=== PATIENT | male | born 1945 | race Caucasian/White ===

== ENCOUNTER → 2016-04-21 | Outpatient (CLI) | payer OTHER, MEDICARE ==
[~2016-04-21] MED LIST: IOPAMIDOL (ISOVUE-300) 100 ML BTL IV ONE
[2016-04-21 12:14] LABS: CREATININE 0.8 mg/dL (0.7-1.3); GLOMERULAR FILTRATION RATE > 60
--- NOTE | 2016-04-21 14:31 | CT ---
CT Abdomen and Pelvis (Without and With Contrast) CT Urogram 1241 hours History: Hematuria (R 31.9). Technique: Spiral images were obtained through the abdomen and pelvis without contrast for renal ston e evaluation. 99 mL of Isovue-300 IV contrast were administered and spiral images were obtained throu gh the abdomen. After a 12-minute delay, spiral imaging was obtained through the abdomen and pelvis. Images were reconstructed in multiple planes for CT urogram imaging. An AP scanogram mattress filling machine tender image was also obtained over the abdomen and pelvis after axial imaging was acquired. Dose reduction techniques were utilized. Findings: On the noncontrast images, there is no evidence of calculus projected over the kidneys or a long the expected path of the ureters. No bladder calculus is seen, as well. With IV contrast administration, there is good uptake and excretion of contrast by the kidneys. No fi lling defects are seen within the collecting system on either side with normal contour to the renal c ollecting structures, as well as the ureters. There is a 15 mm complex cyst lower pole left kidney. Along the left superior margin of the bladder there is focal thickening of the bladder wall. This thuan ears to be associated with a soft tissue band that extends to the sigmoid colon. There is a gas bubbl e just superficial to this thickening as well on the delayed images suspicious for fistula with the a djacent sigmoid colon to the wall of the bladder. There is no gas in the bladder lumen. A fistula thr ough the bladder wall is felt to be unlikely. The remaining bladder wall is normal in appearance. Lung bases: There are a few fibrotic bands in each lung base. Liver: Normal. Spleen: Normal. Gallbladder and Bile Ducts: Normal. Pancreas: Normal. Adrenals: Normal. Abdominal Aorta: No aneurysm. Pelvic structures: There are no pelvic masses or lymphadenopathy. Bladder: Normal . Appendix: Normal. Bowel Loops: There is incidental lipoma of the gastric antrum that measures 4.5 x 3.5 x 3.5 cm. Nume bradley diverticula are seen of the sigmoid colon without active diverticulitis.. No bowel obstruction, ascites, or significant retroperitoneal lymphadenopathy. Skeletal system: Vertebral body heights are well-maintained. There are no significant lytic or scler otic osseous lesions. Impression: 1. Focal thickening and possible inflammation of the left superior bladder wall with associated fistu la that appears to extend from the sigmoid colon to the bladder wall in this location. This could be related to previously treated diverticulitis with persistent fistula. On delayed imaging there is a g as bubble adjacent to the bladder wall thickening. A bladder wall mass cannot be completely excluded. Consider correlation with cystoscopy. 2. Incidental complex cyst lower pole left kidney. 3. Incidental lipoma gastric antrum.
== END ==
LOC: FIMAGING 11:20
PROVIDERS: ATTEND Internal Medicine
DX: K63.2 Fistula of intestine (principal); N28.1 Cyst of kidney, acquired; D17.79 Benign lipomatous neoplasm of other sites
CPT/HCPCS: 74178; Q9967

== ENCOUNTER → 2016-05-15 | Outpatient (CLI) | payer OTHER, MEDICARE | LOC: FIMAGING 12:37 | PROVIDERS: ATTEND Physician Assistant Medical | DX: N28.1 Cyst of kidney, acquired (principal); R31.0 Gross hematuria ==

== ENCOUNTER → 2017-01-23 | Outpatient (CLI) | payer OTHER, MEDICARE | LOC: BHLMT 08:30 | PROVIDERS: ATTEND Internal Medicine Interventional Cardiology | DX: I25.10 Atherosclerotic heart disease of native coronary artery without angina pectoris (principal); R06.02 Shortness of breath | CPT/HCPCS: 93306-PO ==

== ENCOUNTER → 2017-01-23 | Outpatient (CLI) | payer OTHER, MEDICARE | LOC: BHFA 09:00 | PROVIDERS: ATTEND Internal Medicine Cardiovascular Disease | DX: I25.10 Atherosclerotic heart disease of native coronary artery without angina pectoris (principal); R06.02 Shortness of breath; I10 Essential (primary) hypertension; I72.9 Aneurysm of unspecified site | CPT/HCPCS: 78452; 93017; A9500 ==

== ENCOUNTER 2017-05-23 08:42 | Inpatient (IN) | payer OTHER, MEDICARE ==
[2017-05-23] MEDS ORDERED: DIAZEPAM 5 MG TAB PO ONE (08:46)
[2017-05-23] MEDS ORDERED: NS 1,000 ML IV ONE (08:46)
[2017-05-23] MEDS ORDERED: ASPIRIN EC 325 MG TAB PO ONE (08:46)
[2017-05-23] MEDS ORDERED: FAMOTIDINE 20 MG TAB PO ONE (08:46)
[2017-05-23] MEDS ORDERED: diphenhydrAMINE 25 MG CAP PO ONE (08:46)
--- NOTE | 2017-05-23 09:21 | CPEKG ---
Heart Rate: 57 RR Interval: 1053 P-R Interval: 208 QRSD Interval: 102 QT Interval: 440 QTC Interval: 429 P [place]: -69 QRS [place]: 25 T Wave [place]: 31 EKG Severity - OTHERWISE NORMAL ECG - EKG Impression: SINUS OR ECTOPIC ATRIAL RHYTHM Electronically Signed By: Mahin Jaimes 23-May-2017 12:16:29
[2017-05-23 09:23] LABS: PLATELET COUNT 186 10^3/uL (150-400)
[2017-05-23 09:33] LABS: INR 1.08 (0.83-1.16); PROTIME(PATIENT) 14.2 SEC (12.0-15.0)
--- NOTE | 2017-05-23 10:35 | PDPROPOC ---
Sedation Plan of Care Sedation Plan of Care: vital signs stable, mental status noted, patient educated of risks, benefits, alternatives, patient can tolerate sedation ASA Classification: ASA 1 Planned drugs: fentanyl, midazolam Mallampati Score: Class 1 Mallampati Reference Image: Patient passed 3-3-2 rule?: Yes
--- NOTE | 2017-05-23 10:37 | PDGENHP ---
History & Physical Chief Complaint: BROOKS. History of Present Illness: Brooks, known CAD with abnormal MPI indicating a large area of ischemia involving the RCA territory. Pertinent Past, Social, Family History: See prior H and P Relevant Physical Exam: Alert/ Oriented. RRR, no MGR. Lungs clear Cardiorespiratory Assessment: Stable for cardiac catheterization.
[2017-05-23] MEDS ORDERED: LIDOCAINE 1% 300 MG/30 ML SDV ONE (11:09)
[2017-05-23] MEDS ORDERED: MIDAZOLAM 2 MG/2 ML VIAL ONE ×2 (11:09→12:21)
[2017-05-23] MEDS ORDERED: fentaNYL 100 MCG/2 ML INJ ONE (11:09)
[2017-05-23] MEDS ORDERED: IOPAMIDOL (ISOVUE-370) 150 ML BTL IV ONE (11:10)
[2017-05-23] MEDS ORDERED: HEPARIN 10,000 UNIT/10 ML MDV (1,000 UNIT/ML) ONE (11:20)
[2017-05-23] MEDS ORDERED: VERAPAMIL 5 MG/2 ML VIAL ONE (11:20)
--- NOTE | 2017-05-23 12:19 | PDDXCAT ---
Diagnostic Cath Note - . Date: 05/23/17 Computer Systems Integrator: Nadira Indication: Class I/II angina, intolerance to med therapy or failure to respond High-risk criteria on non-invasive testing: stress-induced large perfusion defect (particularly if anterior) - Procedure Access: right wrist Procedure: left heart catheterization, coronary angiography, left ventriculogram - Materials Left Heart Cath size: 5F Left Heart Cath materials: JL3.5, JR4.0, pigtail Right Heart Cath size: 5F - Findings-Left Heart Catheterization LM: Large caliber vessel. Bifurcates in the left anterior descending and circumflex distributions. No significant disease. LAD: Large caliber, transapical vessel. Gives rise to a single principal diagonal branch. Luminal irregularities with no obstructive lesions. LCX: Large caliber vessel. There are 2 obtuse marginal branches identified that originates very proximally in the vessel. There is a small posterolateral branch. There are luminal irregularities with no obstructive lesions. RCA: Large caliber vessel. Dominant. The PDA and a posterolateral branch are identified. There is a high-grade (80%) lesion in the mid vessel immediately distal to an RV branch. EDP: 21 mmHg. LVEF: 45%. Wall motion: Anterolateral hypokinesis. Complications: None. Estimated blood loss: <50ml Closure method: TR Band Assessment: 1. High-grade single-vessel disease as described above with an 80% lesion in the midportion of the right coronary artery. 2. Symptoms of dyspnea on exertion likely representing an anginal equivalent. These are refractory to medical therapy. 3. Intermediate risk nuclear stress test with a large area of inferior reversible ischemia. Plan: The patient will be referred to Dr. Ramsey Mcmahon for percutaneous intervention of the right coronary artery. Intervention: There is a separately dictated report.
[2017-05-23] MEDS ORDERED: CLOPIDOGREL BISULFATE 75 MG TAB ONE (12:30)
[2017-05-23] MEDS ORDERED: TEMAZEPAM 15 MG CAP PO PRN (12:48)
[2017-05-23] MEDS ORDERED: CLOPIDOGREL BISULFATE 75 MG TAB PO ONE (12:48)
[2017-05-23] MEDS ORDERED: OXYCODONE/APAP 5/325 TAB PO PRN (12:48)
[2017-05-23] MEDS ORDERED: HYDROCODONE/APAP 5/325 TAB PO PRN (12:48)
[2017-05-23] MEDS ORDERED: ATROPINE SULFATE 1 MG/10 ML SYR IVP PRN (12:48)
[2017-05-23] MEDS ORDERED: LORazepam 2 MG/ML INJ IVP PRN (12:48)
[2017-05-23] MEDS ORDERED: ONDANSETRON 4 MG/2 ML VIAL IVP PRN (12:48)
[2017-05-23] MEDS ORDERED: NITROGLYCERIN 0.4 MG BTL SL PRN (12:48)
[2017-05-23] MEDS ORDERED: FLUTICASONE/SALMETER 250/50MCG DISKUS IH PRN (12:54)
[2017-05-23] MEDS ORDERED: traMADol 50 MG TAB PO PRN (12:54)
[2017-05-23] MEDS ORDERED: NS 1,000 ML IV SCH (13:00)
--- NOTE | 2017-05-23 13:04 | PDDXCAT ---
Diagnostic Cath Note - . Date: 05/23/17 Biomedical Equipment Tech: Lisandro Indication: other (Dyspnea on exertion, Intermediate risk nuclear stress test with large area perfusion deficit) - Procedure Access: right wrist - Materials Left Heart Cath size: 5F Complications: NONE. Estimated blood loss: <50ml Assessment: Dr. Waddell performed the diagnosic portion of the test. I was asked to see the patient for intraoperative consultation for PTCA and stent placement. Please see Dr. Waddell's dictation in a separate note. Plan: Dual antiplatelet therapy with Aspirin 325mg for the first month followed by Aspirin 81mg along with Plavix 75mg daily should be continued for at least 1 year following drug eluting stent implantation. No elective surgery for the first 3 months. Decisions to stop dual antiplatelet therapy before 1 year should involve our office at [facility], . Intervention: The patient has single vessel disease. There is an 80% lesion in the mid portion of the right coronary artery. A 5 Cam[place]onian JR4 Launcher was used for guide catheter support. A 0.014 Intuition wire was advanced across the lesion in the right coronary artery under direct fluoroscopic and angiographic guidance. The lesion was primarily was primarily ballooned with a 3.0/15 Emerge balloon. The lesion was then stented with a [employer] Synergy 4.0 x 24mm Drug Eluting stent was placed in the lesion mid RCA. There was TERESA III flow present pre and post stent placement. The post stent residual obstruction was 0%.
--- NOTE | 2017-05-23 13:05 | CPEKG ---
Heart Rate: 59 RR Interval: 1017 P-R Interval: 224 QRSD Interval: 106 QT Interval: 456 QTC Interval: 452 P [place]: -13 QRS [place]: 16 T Wave [place]: 21 EKG Severity - ABNORMAL ECG - EKG Impression: SINUS RHYTHM EKG Impression: FIRST DEGREE AV BLOCK EKG Impression: LOW VOLTAGE IN FRONTAL LEADS Electronically Signed By: Mahin Rowland 23-May-2017 16:00:46
[2017-05-24 04:16] LABS: PLATELET COUNT 183 10^3/uL (150-400)
[2017-05-24] MEDS ORDERED: LEVOTHYROXINE 150 MCG TAB PO SCH (06:00)
[2017-05-24] MEDS ORDERED: LEVOTHYROXINE 200 MCG TAB PO SCH (06:00)
[2017-05-24] MEDS ORDERED: amLODIPine BESYLATE 5 MG TAB PO SCH (09:00)
[2017-05-24] MEDS ORDERED: ASPIRIN EC 325 MG TAB PO SCH (09:00)
[2017-05-24] MEDS ORDERED: METOPROLOL SUCCINATE XR 25 MG TAB PO SCH (09:00)
[2017-05-24] MEDS ORDERED: CHOLECALCIFEROL VIT D3 1,000 UNITS TAB PO SCH (09:00)
[2017-05-24] MEDS ORDERED: ALLOPURINOL 300 MG TAB PO SCH (09:00)
[2017-05-24] MEDS ORDERED: CLOPIDOGREL BISULFATE 75 MG TAB PO SCH (09:00)
[2017-05-24] MEDS ORDERED: ATORVASTATIN CALCIUM 40 MG TAB PO SCH (09:00)
--- NOTE | 2017-05-24 09:01 | CPEKG ---
Heart Rate: 70 RR Interval: 857 P-R Interval: 196 QRSD Interval: 106 QT Interval: 376 QTC Interval: 406 P [place]: -68 QRS [place]: 25 T Wave [place]: 59 EKG Severity - OTHERWISE NORMAL ECG - EKG Impression: SINUS OR ECTOPIC ATRIAL RHYTHM EKG Impression: LOW VOLTAGE IN FRONTAL LEADS Electronically Signed By: Mahin Rowland 24-May-2017 11:04:46
[2017-05-24 12:29] VITALS: BP 138/80; PULSE 77; RESP 17; TEMP 98.2; O2SAT 94
--- NOTE | 2017-05-24 13:41 | PDMN ---
Medical Necessity Medical necessity: Pt meets IP criteria per MD; est los >2 mn for eval/tx of dyspnea on exertion & CAD w/abnormal MPI indicating large area of ischemia & 80 % lesion of right coronary artery requiring PCI & monitoring; hx aneurysm, htn, pneumonia' per H&P & order 05/23/17
--- NOTE | 2017-05-25 20:59 | GDS ---
[f rep st] DISCHARGE SUMMARY ADMIT DIAGNOSES: 1. Abnormal nuclear stress test. 2. Planned cardiac angiogram with possible percutaneous coronary intervention. DISCHARGE DIAGNOSES: 1. Status post right coronary artery, percutaneous coronary intervention with placement of drug-elut ing stent. 2. Coronary artery disease. COURSE OF HOSPITALIZATION: This gentleman is a known patient of Dr. Jose Waddell. He had complaints of anginal symptoms, and was further evaluated with Nuclear treadmill stress test, which was abnorma l, showing a large area of inferior reversible ischemia. It was recommended that he proceed [facility] to further evaluate his cardiac status. He was taken to the cardiac company laborer by Dr. Amy Waddell on 05/23/2017, where he did find a high-grade 80% lesion in the mid vessel immediately di stal to an RV branch of the RCA. His left ventricle ejection fraction was 45%. Wall motion showed a nterior lateral hypokinesis. Dr. Waddell then referred him to Dr. Ramsey Mcmahon for percutaneous interv ention of the right coronary artery. Dr. Mcmahon intervened during the procedure, and was able to suc cessfully place a drug-eluting stent to the 80% lesion of the right coronary artery. He was then felipe en to PCU for overnight observation, where he has done well. He has no chest pain, shortness of dioni th on the morning of discharge. He has been up ambulating, and has no complaints. ALLERGIES: Sulfamethoxazole and trimethoprim. DISCHARGE MEDICATIONS: He will resume vitamin B complex daily, multivitamin daily, vitamin D3 1,000 units daily, fish oil 1,000 mg daily, Ultram 50 mg every 6 hours as needed, metoprolol extended relea se 25 mg daily, Synthroid 200 mcg daily, Proventil 1-2 puffs inhaled daily as needed, Norvasc 5 mg da leon, Synthroid 150 mcg daily, Lipitor 40 mg 80 mg daily, aspirin 325 mg daily, allopurinol 300 mg roz ly, Advair 1 puff inhaled twice daily as needed, meloxicam 15 mg at bedtime daily, Plavix 75 mg daily . PHYSICAL EXAMINATION: VITAL SIGNS: On day of discharge, blood pressure 138/80, heart rate 77 and re gular, oxygen saturation 94%, temperature 36.8 Celsius. EKG showed normal sinus rhythm with a rate o f 77. HEART: Rate regular. No murmurs, rubs, gallops. LUNGS: Sounds are clear to auscultation. No wheezes, rales, or rhonchi. EXTREMITIES: Peripheral pulses are 2+ bilaterally. Right wrist cath insertion site shows no ecchymosis. Ulnar and radial pulses are 2+. Good capillary refill of raffaele rs. DISCHARGE PLAN: He will be discharged home today. He was given wrist precautions verbally and with instruction sheet. These were reviewed with him. The procedure and placement of stent were reviewed with him, and all questions were answered. He does have more questions for Dr. Waddell when he sees h im in followup. Follow up with Dr. Waddell in 1 week. Appointment has been made. At this time, he currently is stable for discharge. /[id number]/MODL
== END 2017-05-24 12:00 | disposition home or self-care (01) | DRG 247 ==
LOC: FCATH 08:42 → F2W 12:18 → OBSVTOIN 12:50 → F2W 14:03
PROVIDERS: ADMIT Internal Medicine Cardiovascular Disease; ATTEND Internal Medicine Cardiovascular Disease
PROC: 027034Z Dilation of Coronary Artery, One Artery with Drug-eluting Intraluminal Device, Percutaneous Approach (ICD-10-PCS; principal; 2017-05-23)
PROC: B2111ZZ Fluoroscopy of Multiple Coronary Arteries using Low Osmolar Contrast (ICD-10-PCS; 2017-05-23)
PROC: B2151ZZ Fluoroscopy of Left Heart using Low Osmolar Contrast (ICD-10-PCS; 2017-05-23)
PROC: 4A023N7 Measurement of Cardiac Sampling and Pressure, Left Heart, Percutaneous Approach (ICD-10-PCS; 2017-05-23)
DX: I25.10 Atherosclerotic heart disease of native coronary artery without angina pectoris (principal); I10 Essential (primary) hypertension
CPT/HCPCS: C1725; C1769; C1874; C1887; C9600; J1644; J2250; J3010; Q9967

== ENCOUNTER → 2017-07-05 | Outpatient (CLI) | payer OTHER, MEDICARE | LOC: BHFA 08:00 | PROVIDERS: ATTEND Internal Medicine Cardiovascular Disease | DX: J45.909 Unspecified asthma, uncomplicated (principal); R06.09 Other forms of dyspnea ==

== ENCOUNTER 2018-04-02 10:36 | Inpatient (IN) | payer OTHER, MEDICARE ==
--- NOTE | 2018-04-02 11:00 | EDPHY ---
HPI/HX/ROS/PE/MDM Narrative: CHIEF COMPLAINT: Possible GI bleed HISTORY OF PRESENT ILLNESS: The patient is an anticoagulated (Plavix and Aspirin) 72 y/o male with a history of cardiac stents arriving to the emergency department for a possible GI bleed. Starting yesterday he began to feel dizzy and lightheaded. When he went to the bathroom he noticed that he had black tarry stool. His symptoms continued today and he had a syncopal episode. After the syncopal episode he did hit his head. As his symptoms did not improve he saw his physician, Dr. Lal, who advised that the patient present to the emergency department. The patient does take Meloxicam for arthritis. He denies a history of gastric ulcers or prior GI bleeds. His last colonoscopy was 2 years ago and there were not significant findings. No fever, chills, chest pain, shortness of breath, palpitations, vomiting, diarrhea, urinary complaints, headache. This patient is a poor historian. REVIEW OF SYSTEMS: Aside from elements discussed in the HPI, a comprehensive 10-point review of systems was reviewed and is negative. PAST MEDICAL HISTORY: Cardiac stents (on Plavix), hypertension, gout, thyroid cancer, left knee and hip replacement SOCIAL HISTORY: at bedside, lives in [place], retired VITAL SIGNS: Reviewed by me 115/77, 81 GENERAL: Well-developed, well-nourished, alert, elderly patient. HEENT: Abrasions on bilateral frontal forehead. Eyes: No icterus, no injection. Mouth: moist mucous membranes. No erythema or lesions. Neck: supple with no adenopathy. LUNGS: Clear to auscultation bilaterally, no wheezes, rhonchi or rales. CARDIAC: Irregular tachycardia, no rubs, murmurs or gallops. ABDOMEN: Soft, nontender, nondistended, bowel sounds normal. RECTAL: Melena present. BACK: No CVA tenderness. EXTREMITIES: No trauma. No edema. Range of motion is normal throughout. NEURO: Alert and oriented, grossly nonfocal. SKIN: Warm and dry, no rash. PSYCHIATRIC: Normal mentation, no agitation. Portions of this note were transcribed by a medical program specialist. I personally performed a history, physical exam, medical decision making, and confirmed accuracy of information the transcribed note. ED Course: The patient is an anticoagulated (Plavix and Aspirin) 72 y/o male with a history of cardiac stents arriving to the emergency department for a possible GI bleed. The patient began to feel dizzy, have syncopal episodes, and have black tarry stools yesterday. Today he was advised to present to the emergency department by Dr. Lal. On my physical exam the patient has melena present. He also has an abrasion on his bilateral frontal forehead after having a syncopal episode and hitting his head today. Labs and EKG ordered; 40mg IV Protonix and 1L IV NS administered. I discussed the plan for admission, which the patient and his are comfortable with. 1054: 12-LEAD EKG: Please see the full report in [employer] [facility]. My interpretation: Atrial fibrillation with a rate of 101. Upon repeat examination the patient is no longer in atrial fibrillation. 1130: Patient's POC troponin is negative. H and H 01/15. 1135: I consulted with the hospitalist service, Dr. Waters accepts admission of this patient. Discussed with GI also and they will follow in the hospital. 1150: I spoke with the radiologist who reports that the patient's head CT has no acute findings. Remained hemodynamically stable; admitted to hospital. MDM: Diff dx considered included but not limited to lower gi bleeding, upper gi bleeding, peptic ulcer disease, acute anemia, hemorrhagic shock, intracranial hemorrhage, complications of anti-coagulant use. - Data Points Imaging Results: Imaging Impressions Head CT 04/02/18 11:17 Impression: 1. Negative. No acute fracture or evidence of acute intracranial injury. 2. White matter disease and right parietal encephalomalacia are unchanged since 2 months prior. Findings discussed with Emergency Department physician, Dr. Angela Hdz on April 02, 2018 at 1150 hours. Imaging: Discussed imaging studies w/ candy catcher Radiologist, I viewed and interpreted images myself Laboratory Results: Laboratory Results 04/02/18 10:56 04/02/18 10:56 04/02/18 04/02/18 04/02/18 11:03 11:03 10:56 WBC RBC Hgb POC Hgb 10.2 gm/dL L gm/dL (13.7-17.5) Hct POC Hct 30 % L % (40-51) MCV MCH MCHC RDW Plt Count MPV Neut % (Auto) Lymph % (Auto) [place] % (Auto) Eos % (Auto) Baso % (Auto) Nucleat RBC Rel Count Absolute Neuts (auto) Absolute Lymphs (auto) Absolute Monos (auto) Absolute Eos (auto) Absolute Basos (auto) Absolute Nucleated RBC Immature Gran % Immature Gran # PT INR POC Sodium 142 mEq/L mEq/L (135-145) Sodium POC Potassium 3.7 mEq/L mEq/L (3.3-5.0) Potassium POC Chloride 105 mEq/L mEq/L (97-110) Chloride Carbon Dioxide Anion Gap POC BUN 71 mg/dL H mg/dL (7-23) BUN Creatinine POC Creatinine 1.0 mg/dL mg/dL (0.7-1.3) Estimated GFR Glucose POC Glucose 90 mg/dL mg/dL (70-100) Calcium Total Bilirubin Conjugated Bilirubin Unconjugated Bilirubin AST ALT Alkaline Phosphatase POC Troponin I 0.00 ng/mL ng/mL (0.00-0.08) Troponin I Total Protein Albumin Lipase Stool Occult Bld Scrn Patient ABO/Rh O POSITIVE Antibody Screen NEGATIVE 04/02/18 04/02/18 04/02/18 10:56 10:56 10:56 WBC RBC Hgb POC Hgb Hct POC Hct MCV MCH MCHC RDW Plt Count MPV Neut % (Auto) Lymph % (Auto) [place] % (Auto) Eos % (Auto) Baso % (Auto) Nucleat RBC Rel Count Absolute Neuts (auto) Absolute Lymphs (auto) Absolute Monos (auto) Absolute Eos (auto) Absolute Basos (auto) Absolute Nucleated RBC Immature Gran % Immature Gran # PT 16.1 SEC H SEC (12.0-15.0) INR 1.27 H (0.83-1.16) POC Sodium Sodium 139 mEq/L mEq/L (135-145) POC Potassium Potassium 4.0 mEq/L mEq/L (3.5-5.2) POC Chloride Chloride 109 mEq/L mEq/L (97-110) Carbon Dioxide 23 mEq/l mEq/l (22-31) Anion Gap 7 mEq/L mEq/L (6-14) POC BUN BUN 75 mg/dL H mg/dL (7-23) Creatinine 0.9 mg/dL mg/dL (0.7-1.3) POC Creatinine Estimated GFR > 60 Glucose 88 mg/dL mg/dL (70-100) POC Glucose Calcium 8.9 mg/dL mg/dL (8.5-10.4) Total Bilirubin 0.8 mg/dL mg/dL (0.1-1.4) Conjugated Bilirubin 0.5 mg/dL mg/dL (0.0-0.5) Unconjugated Bilirubin 0.3 mg/dL mg/dL (0.0-1.1) AST 24 IU/L IU/L (17-59) ALT 26 IU/L IU/L (21-72) Alkaline Phosphatase 54 IU/L IU/L (38-126) POC Troponin I Troponin I < 0.012 ng/mL ng/mL (0.000-0.034) Total Protein 5.6 g/dL L g/dL (6.3-8.2) Albumin 3.2 g/dL L g/dL (3.5-5.0) Lipase 148 IU/L IU/L (23-300) Stool Occult Bld Scrn POSITIVE H (NEGATIVE) Patient ABO/Rh Antibody Screen 04/02/18 10:56 WBC 13.03 10^3/uL H 10^3/uL (3.80-9.50) RBC 3.02 10^6/uL L 10^6/uL (4.40-6.38) Hgb 10.4 g/dL L g/dL (13.7-17.5) POC Hgb Hct 30.2 % L % (40.0-51.0) POC Hct MCV 100.0 fL H fL (81.5-99.8) MCH 34.4 pg H pg (27.9-34.1) MCHC 34.4 g/dL g/dL (32.4-36.7) RDW 13.3 % % (11.5-15.2) Plt Count 206 10^3/uL 10^3/uL (150-400) MPV 12.2 fL H fL (8.7-11.7) Neut % (Auto) 86.8 % H % (39.3-74.2) Lymph % (Auto) 6.5 % L % (15.0-45.0) [place] % (Auto) 6.1 % % (4.5-13.0) Eos % (Auto) 0.0 % L % (0.6-7.6) Baso % (Auto) 0.2 % L % (0.3-1.7) Nucleat RBC Rel Count 0.0 % % (0.0-0.2) Absolute Neuts (auto) 11.31 10^3/uL H 10^3/uL (1.70-6.50) Absolute Lymphs (auto) 0.85 10^3/uL L 10^3/uL (1.00-3.00) Absolute Monos (auto) 0.80 10^3/uL 10^3/uL (0.30-0.80) Absolute Eos (auto) 0.00 10^3/uL L 10^3/uL (0.03-0.40) Absolute Basos (auto) 0.02 10^3/uL 10^3/uL (0.02-0.10) Absolute Nucleated RBC 0.00 10^3/uL 10^3/uL (0-0.01) Immature Gran % 0.4 % % (0.0-1.1) Immature Gran # 0.05 10^3/uL 10^3/uL (0.00-0.10) PT INR POC Sodium Sodium POC Potassium Potassium POC Chloride Chloride Carbon Dioxide Anion Gap POC BUN BUN Creatinine POC Creatinine Estimated GFR Glucose POC Glucose Calcium Total Bilirubin Conjugated Bilirubin Unconjugated Bilirubin AST ALT Alkaline Phosphatase POC Troponin I Troponin I Total Protein Albumin Lipase Stool Occult Bld Scrn Patient ABO/Rh Antibody Screen Medications Given: Discontinued Medications Sodium Chloride (Ns) 1,000 mls @ 0 mls/hr IV EDNOW ONE; Wide Open PRN Reason: Protocol Stop: 04/02/18 11:03 Last Admin: 04/02/18 11:06 Dose: 1,000 mls Pantoprazole Sodium (Protonix) 40 mg IVP EDNOW ONE Stop: 04/02/18 11:04 Last Admin: 04/02/18 11:10 Dose: 40 mg Point of Care Test Results: Chemistry 04/02/18 04/02/18 11:03 11:03 POC Sodium 142 mEq/L mEq/L (135-145) POC Potassium 3.7 mEq/L mEq/L (3.3-5.0) POC Chloride 105 mEq/L mEq/L (97-110) POC BUN 71 mg/dL H mg/dL (7-23) POC Creatinine 1.0 mg/dL mg/dL (0.7-1.3) POC Glucose 90 mg/dL mg/dL (70-100) POC Troponin I 0.00 ng/mL ng/mL (0.00-0.08) ISTAT H&H 04/02/18 11:03 POC Hgb 10.2 gm/dL L gm/dL (13.7-17.5) POC Hct 30 % L % (40-51) General Time Seen by Provider: 04/02/18 10:51 Initial Vital Signs: Initial Vital Signs Temperature (C) 36.7 C 04/02/18 10:40 Heart Rate 81 04/02/18 10:40 Respiratory Rate 16 04/02/18 10:40 Blood Pressure 115/77 04/02/18 10:40 O2 Sat (%) 98 04/02/18 10:40 O2 Delivery Mode Room Air Allergies/Adverse Reactions: sulfamethoxazole [From Bactrim] Allergy (Verified 05/02/17 10:20) Swelling/neck,face,throat trimethoprim [From Bactrim] Allergy (Verified 05/02/17 10:20) Swelling/neck,face,throat Home Medications: Medication Instructions Recorded Albuterol [Proventil Inhaler HFA 1 - 2 puffs IH DAILY PRN 05/02/17 (*)] Allopurinol [Allopurinol 300 MG 300 mg PO DAILY 05/02/17 (RX)] Atorvastatin Calcium [Lipitor 40 40 mg PO DAILY 05/02/17 mg (*)] Cholecalciferol Vit D3 [Vitamin D3 1,000 units PO DAILY 05/02/17 (*)] Herbals/Supplements -Info Only 1 ea PO DAILY 05/02/17 Levothyroxine [Synthroid 150 mcg 150 mcg PO DAILY06 05/02/17 (*)] Levothyroxine [Synthroid 200 mcg 200 mcg PO DAILY06 05/02/17 (*)] Multivitamins [Multivitamin (*)] 1 each PO DAILY 05/02/17 [place]-3 Fatty Acids [Fish Oil 1000 1,000 mg PO DAILY 05/02/17 mg (*)] Vit B Comp/C/Folic/Iron/Vit E 1 each PO DAILY 05/02/17 [Vitamin B Complex Tablet] amLODIPine BESYLATE [Norvasc 5 mg 5 mg PO DAILY 05/02/17 (*)] traMADol [Ultram 50 mg (*)] 50 mg PO Q6HRS PRN 05/02/17 Clopidogrel Bisulfate [Plavix (*)] 75 mg PO DAILY #30 tab 05/24/17 Hydrochlorothiazide [HCTZ (*)] 25 mg PO DAILY 04/02/18 Departure - Departure Disposition: [facility] Inpatient Acute Clinical Impression: Upper GI bleed Condition: Fair Report Scribed for: Angela Hdz Report Scribed by: Arti Barry Date of Report: 04/02/18 Time of Report: 11:40
[2018-04-02] MEDS ORDERED: NS 1,000 ML IV ONE (11:02)
[2018-04-02] MEDS ORDERED: PANTOPRAZOLE SODIUM 40 MG VIAL IVP ONE (11:03)
[2018-04-02 11:20] LABS: PLATELET COUNT 206 10^3/uL (150-400)
[2018-04-02 11:25] LABS: INR 1.27 (0.83-1.16); PROTIME(PATIENT) 16.1 SEC (12.0-15.0)
[2018-04-02] MEDS ORDERED: ONDANSETRON 4 MG/2 ML VIAL IVP PRN (11:45)
[2018-04-02] MEDS ORDERED: ACETAMINOPHEN 325 MG TAB PO PRN (11:45)
[2018-04-02] MEDS ORDERED: ONDANSETRON DISINTEGRATING 4 MG TAB PO PRN (11:45)
--- NOTE | 2018-04-02 13:28 | PDGENHP ---
History and Physical - Chief Complaint Melena, lightheadedness - History of Present Illness This is a 72 y/o male with history of CAD s/p stent placement and hypertension presenting with melena and syncopal episode. Onset was yesterday. He reports he was walking to the bathroom when he suddenly became lightheaded and quickly sat down on the toilet because he felt like he was going to pass out. He didn' t. He had a bowel movement that was described as black and tarry along with red blood in the water. Early this morning around 2:00am, he woke up and attempted to use his urinal (uses a urinal sometimes because of his arthritic knees) and he once again, felt lightheaded and unfortunately had a syncopal event hitting his head. He went to his PCP today where he had another bowel movement with melena. PCP recommended he follow up with the emergency room. He has never had this happen to him before. He denies history of ulcers. No vomiting, nausea, abdominal pain/tenderness, dysuria, chest pains, palpitations , shortness of breath. He has been utilizing Meloxicam 15 mg PO daily for the last 5 years. Also utilizes aspirin and Plavix for his stent. He is being admitted for further diagnostic work-up and monitoring. Past Medical/Surgical History 1. CAD s/p drug-eluting stent placement in May 2017 2. Hypertension 3. Arthritis 4. Gout 5. Thoracic aneurysm 6. Varicose veins 7. Thyroid cancer 8. Shoulder surgery (2016) 9. Pilonidal cyst 10. Left knee and hip surgery Social 1. , lives in [place] 2. Works at [employer] in [place] 3. Former smoker. Has not smoked in ~50 years. Denies illicit drug use. Drinks 1-2 alcohol beverages/week. History Information - Allergies/Home Medication List Allergies/Adverse Reactions: sulfamethoxazole [From Bactrim] Allergy (Verified 05/02/17 10:20) Swelling/neck,face,throat trimethoprim [From Bactrim] Allergy (Verified 05/02/17 10:20) Swelling/neck,face,throat Home Medications: Albuterol [Proventil Inhaler HFA (*)] 1 - 2 puffs IH DAILY PRN 05/02/17 [Last Taken 05/22/17] Allopurinol [Allopurinol 300 MG (RX)] 300 mg PO DAILY 05/02/17 [Last Taken 04/01] Atorvastatin Calcium [Lipitor 40 mg (*)] 40 mg PO DAILY 05/02/17 [Last Taken ] Cholecalciferol Vit D3 [Vitamin D3 (*)] 1,000 units PO DAILY 05/02/17 [Last Taken 04/01/18] Herbals/Supplements -Info Only 1 ea PO DAILY 05/02/17 [Last Taken 05/22/17] Levothyroxine [Synthroid 150 mcg (*)] 150 mcg PO DAILY06 05/02/17 [Last Taken ] Levothyroxine [Synthroid 200 mcg (*)] 200 mcg PO DAILY06 05/02/17 [Last Taken ] Meloxicam 15 mg PO DAILY 05/02/17 [Last Taken 04/01/18] Metoprolol Succinate Xr [Toprol Xl 25 mg (*)] 25 mg PO DAILY 05/02/17 [Last Taken 04/01/18] Multivitamins [Multivitamin (*)] 1 each PO DAILY 05/02/17 [Last Taken 04/01/18] [place]-3 Fatty Acids [Fish Oil 1000 mg (*)] 1,000 mg PO DAILY 05/02/17 [Last Taken 04/01/18] Vit B Comp/C/Folic/Iron/Vit E [Vitamin B Complex Tablet] 1 each PO DAILY [Last Taken 04/01/18] amLODIPine BESYLATE [Norvasc 5 mg (*)] 5 mg PO DAILY 05/02/17 [Last Taken ] traMADol [Ultram 50 mg (*)] 50 mg PO Q6HRS PRN 05/02/17 [Last Taken 05/22/17] Hydrochlorothiazide [HCTZ (*)] 25 mg PO DAILY 04/02/18 [Last Taken 04/01/18] I have personally reviewed and updated: family history, medical history, social history, surgical history Past Medical History: See HPI list - Surgical History Additional surgical history: See HPI list - Family History Additional family history: Malignant breast neoplasm. CKD. CA. HTN - Social History Smoking Status: Former smoker Alcohol Use: Rarely Drug Use: None Review of Systems Review of Systems: ROS: 10pt was reviewed & negative except for what was stated in HPI & below Constitutional: Reports: recent injury EENMT: Reports: no symptoms Cardiac: Reports: syncope Respiratory: Reports: no symptoms Gastrointestinal: Reports: black stools Genitourinary: Reports: no symptoms Muscolosketal: Reports: no symptoms Skin: Reports: no symptoms Neurological: Reports: no symptoms Hematologic/Lymphatic: Reports: no symptoms Immunologic/Allergy: Reports: no symptoms Physical Exam Physical Exam: Lab data and imaging reviewed Temp Pulse Resp BP Pulse Ox 36.7 C 81 16 115/77 98 04/02/18 10:40 04/02/18 10:40 04/02/18 10:40 04/02/18 10:40 04/02/18 10:40 Constitutional: no apparent distress, appears nourished, not in pain Eyes: PERRL, anicteric sclera, EOMI Ears, Nose, Mouth, Throat: moist mucous membranes, hearing normal, ears appear normal, no oral mucosal ulcers, other (Abrasion noted to forehead) Cardiovascular: regular rate and rhythym, no murmur, rub, or gallop, No edema Peripheral Pulses: 2+: dorsalis-pedis (R) (Radial 2+), dorsalis-pedis (L) ( Radial 2+) Respiratory: no respiratory distress, no rales or rhonchi, clear to auscultation Gastrointestinal: normoactive bowel sounds, soft, non-tender abdomen, no palpable masses Genitourinary: no bladder fullness, no bladder tenderness Skin: warm, normal color, no fluctuance, no induration, abrasion (Forehead), No mottled Musculoskeletal: full muscle strength, no muscle tenderness, normal joint ROM, no joint effusions Neurologic: AAOx3, sensation intact bilaterally, CN II-XII Intact Psychiatric: interacting appropriately, not anxious, not encephalopathic, thought process linear Lymph, Heme, Immunologic: no cervical LAD, no supraclavicular LAD Lab Data & Imaging Review 04/02/18 10:56 04/02/18 10:56 WBC 13.03 10^3/uL (3.80-9.50) H 04/02/18 10:56 RBC 3.02 10^6/uL (4.40-6.38) L 04/02/18 10:56 Hgb 10.4 g/dL (13.7-17.5) L 04/02/18 10:56 POC Hgb 10.2 gm/dL (13.7-17.5) L 04/02/18 11:03 Hct 30.2 % (40.0-51.0) L 04/02/18 10:56 POC Hct 30 % (40-51) L 04/02/18 11:03 MCV 100.0 fL (81.5-99.8) H 04/02/18 10:56 MCH 34.4 pg (27.9-34.1) H 04/02/18 10:56 MCHC 34.4 g/dL (32.4-36.7) 04/02/18 10:56 RDW 13.3 % (11.5-15.2) 04/02/18 10:56 Plt Count 206 10^3/uL (150-400) 04/02/18 10:56 MPV 12.2 fL (8.7-11.7) H 04/02/18 10:56 Neut % (Auto) 86.8 % (39.3-74.2) H 04/02/18 10:56 Lymph % (Auto) 6.5 % (15.0-45.0) L 04/02/18 10:56 Tyrrell % (Auto) 6.1 % (4.5-13.0) 04/02/18 10:56 Eos % (Auto) 0.0 % (0.6-7.6) L 04/02/18 10:56 Baso % (Auto) 0.2 % (0.3-1.7) L 04/02/18 10:56 Nucleat RBC Rel Count 0.0 % (0.0-0.2) 04/02/18 10:56 Absolute Neuts (auto) 11.31 10^3/uL (1.70-6.50) H 04/02/18 10:56 Absolute Lymphs (auto) 0.85 10^3/uL (1.00-3.00) L 04/02/18 10:56 Absolute Monos (auto) 0.80 10^3/uL (0.30-0.80) 04/02/18 10:56 Absolute Eos (auto) 0.00 10^3/uL (0.03-0.40) L 04/02/18 10:56 Absolute Basos (auto) 0.02 10^3/uL (0.02-0.10) 04/02/18 10:56 Absolute Nucleated RBC 0.00 10^3/uL (0-0.01) 04/02/18 10:56 Immature Gran % 0.4 % (0.0-1.1) 04/02/18 10:56 Immature Gran # 0.05 10^3/uL (0.00-0.10) 04/02/18 10:56 PT 16.1 SEC (12.0-15.0) H 04/02/18 10:56 INR 1.27 (0.83-1.16) H 04/02/18 10:56 POC Sodium 142 mEq/L (135-145) 04/02/18 11:03 Sodium 139 mEq/L (135-145) 04/02/18 10:56 POC Potassium 3.7 mEq/L (3.3-5.0) 04/02/18 11:03 Potassium 4.0 mEq/L (3.5-5.2) 04/02/18 10:56 POC Chloride 105 mEq/L (97-110) 04/02/18 11:03 Chloride 109 mEq/L (97-110) 04/02/18 10:56 Carbon Dioxide 23 mEq/l (22-31) 04/02/18 10:56 Anion Gap 7 mEq/L (6-14) 04/02/18 10:56 POC BUN 71 mg/dL (7-23) H 04/02/18 11:03 BUN 75 mg/dL (7-23) H 04/02/18 10:56 Creatinine 0.9 mg/dL (0.7-1.3) 04/02/18 10:56 POC Creatinine 1.0 mg/dL (0.7-1.3) 04/02/18 11:03 Estimated GFR > 60 04/02/18 10:56 Glucose 88 mg/dL (70-100) 04/02/18 10:56 POC Glucose 90 mg/dL (70-100) 04/02/18 11:03 Calcium 8.9 mg/dL (8.5-10.4) 04/02/18 10:56 Total Bilirubin 0.8 mg/dL (0.1-1.4) 04/02/18 10:56 Conjugated Bilirubin 0.5 mg/dL (0.0-0.5) 04/02/18 10:56 Unconjugated Bilirubin 0.3 mg/dL (0.0-1.1) 04/02/18 10:56 AST 24 IU/L (17-59) 04/02/18 10:56 ALT 26 IU/L (21-72) 04/02/18 10:56 Alkaline Phosphatase 54 IU/L (38-126) 04/02/18 10:56 POC Troponin I 0.00 ng/mL (0.00-0.08) 04/02/18 11:03 Troponin I < 0.012 ng/mL (0.000-0.034) 04/02/18 10:56 Total Protein 5.6 g/dL (6.3-8.2) L 04/02/18 10:56 Albumin 3.2 g/dL (3.5-5.0) L 04/02/18 10:56 Lipase 148 IU/L (23-300) 04/02/18 10:56 Stool Occult Bld Scrn POSITIVE (NEGATIVE) H 04/02/18 10:56 Patient ABO/Rh O POSITIVE 04/02/18 10:56 Antibody Screen NEGATIVE 04/02/18 10:56 Assessment & Plan Plan: This is a 72 y/o male with history of CAD s/p stent and hypertension presenting with syncopal episode and melena. He has remained on dual therapy of ASA and Plavix since May 2017. Additionally, he has utilized Meloxicam 15 mg PO for at least 5 years every day for his arthritis. 1. Upper gastrointestinal bleed: denies vomiting, fever, nausea, chills. + melena. Stool occult test +. H/H 10.4/30.2. Baseline H/H ~14.0/44.0. Currently hemodynamically stable. -GI consulted and aware: Dr. Sanchez to possibly scope him later today -Serial H/H Q6H x 4 -Holding plavix, aspirin, meloxicam for now -NPO diet for now -CBC w/diff tomorrow -Received protonix IVP in ED; will continue Protonix IVP Q6H -IVF 2. Syncopal episode: etiology unknown but most likely correlated with UGIB. Head CT negative for any intracranial processes or fractures. Denies chest pains, palpitations. Stent placed in [place] [address] Mcmahon; he found a high- grade 80% lesion in the mid vessel immediately distal to an RV branch of the RCA. LVEF at the time was 45%. EKG reveals atrial fibrillation however during examination, was not in atrial fibrillation. -Echo complete pending -Continuous tele monitoring -TSH pending 3. Hypertension: currently normotensive. Asymptomatic. Holding amlodipine, HCTZ , and metoprolol for now until UGIB has been resolved. Continue to monitor. 4. Arthritis: He may utilize Tylenol or his home medication of tramadol for pain PRN. 5. Asthma: albuterol PRN 6. Gout: may continue allopurinol Diet: NPO Code: Full VTE ppx: SCDs Dispo: Admit to inpatient
[2018-04-02] MEDS ORDERED: ALBUTEROL 60 PUFFS/8 GM MDI IH PRN (13:51)
[2018-04-02] MEDS: NS 1,000 ML IV SCH (14:52)
--- NOTE | 2018-04-02 15:21 | PDMN ---
Medical Necessity Medical necessity: Pt meets IP criteria as of 04/02/2018 per and MCG M-180 ( Gastrointestinal Bleeding, Upper); est los > 2 mn for ongoing tx and evaluation of Upper GI bleed with melena as well as syncopal episode; requiring serial labs , GI consultation with possible intervention and further workup; Comorbid CAD s/ p stent and HTN.
[2018-04-02] MEDS ORDERED: LR 1,000 ML IV ONE (15:31)
--- NOTE | 2018-04-02 15:56 | PDANEPAE ---
ANE Past Medical History - Cardiovascular History Hx Hypertension: Yes Hx Arrhythmias: Yes Hx Chest Pain: Yes Hx Coronary Artery / Peripheral Vascular Disease: No Hx CHF / Valvular Disease: No Hx Palpitations: No - Pulmonary History Hx COPD: Yes Hx Asthma/Reactive Airway Disease: No Hx Recent Upper Respiratory Infection: No Hx Oxygen in Use at Home: No Hx Sleep Apnea: Yes Pulmonary History Comment: uses inhaler seasonally - Neurologic History Hx Cerebrovascular Accident: No Hx Seizures: No Hx Dementia: No - Endocrine History Hx Diabetes: No - Renal History Hx Renal Disorders: No - Liver History Hx Hepatic Disorders: No - Neurological & Psychiatric Hx Hx Neurological and Psychiatric Disorders: No - Cancer History Hx Cancer: Yes Cancer History Comment: thyroid CA - Congenital Disorder History Hx Congenital Disorders: No - GI History Hx Gastrointestinal Disorders: No - Chronic Pain History Chronic Pain: No - Surgical History Prior Surgeries: left knee arthroscopies,. left shoulder arthroscopy ANE Review of Systems Review of Systems: - Exercise capacity METS (RN): 4 METS ANE Patient History - Allergies Allergies/Adverse Reactions: sulfamethoxazole [From Bactrim] Allergy (Verified 05/02/17 10:20) Swelling/neck,face,throat trimethoprim [From Bactrim] Allergy (Verified 05/02/17 10:20) Swelling/neck,face,throat - Home Medications Home Medications: Albuterol [Proventil Inhaler HFA (*)] 1 - 2 puffs IH DAILY PRN 05/02/17 [Last Taken 05/22/17] Allopurinol [Allopurinol 300 MG (RX)] 300 mg PO DAILY 05/02/17 [Last Taken 04/01] Atorvastatin Calcium [Lipitor 40 mg (*)] 40 mg PO DAILY 05/02/17 [Last Taken ] Cholecalciferol Vit D3 [Vitamin D3 (*)] 1,000 units PO DAILY 05/02/17 [Last Taken 04/01/18] Herbals/Supplements -Info Only 1 ea PO DAILY 05/02/17 [Last Taken 05/22/17] Levothyroxine [Synthroid 150 mcg (*)] 150 mcg PO DAILY06 05/02/17 [Last Taken ] Levothyroxine [Synthroid 200 mcg (*)] 200 mcg PO DAILY06 05/02/17 [Last Taken ] Meloxicam 15 mg PO DAILY 05/02/17 [Last Taken 04/01/18] Metoprolol Succinate Xr [Toprol Xl 25 mg (*)] 25 mg PO DAILY 05/02/17 [Last Taken 04/01/18] Multivitamins [Multivitamin (*)] 1 each PO DAILY 05/02/17 [Last Taken 04/01/18] [place]-3 Fatty Acids [Fish Oil 1000 mg (*)] 1,000 mg PO DAILY 05/02/17 [Last Taken 04/01/18] Vit B Comp/C/Folic/Iron/Vit E [Vitamin B Complex Tablet] 1 each PO DAILY [Last Taken 04/01/18] amLODIPine BESYLATE [Norvasc 5 mg (*)] 5 mg PO DAILY 05/02/17 [Last Taken ] traMADol [Ultram 50 mg (*)] 50 mg PO Q6HRS PRN 05/02/17 [Last Taken 05/22/17] Hydrochlorothiazide [HCTZ (*)] 25 mg PO DAILY 04/02/18 [Last Taken 04/01/18] - Smoking Hx Smoking Status: Former smoker - Alcohol Use Alcohol Use: Rarely ANE Labs/Vital Signs - Labs Result Diagrams: 04/02/18 15:00 04/02/18 10:56 - Vital Signs Blood Pressure: 117/72 Heart Rate: 78 Respiratory Rate: 18 O2 Sat (%): 95 Height: 180.34 cm Weight: 99.79 kg ANE Physical Exam - Airway Neck exam: decreased ROM Mallampati Score: Class 1 Mouth exam: normal dental/mouth exam - Pulmonary Pulmonary: no respiratory distress - Cardiovascular Cardiovascular: irregularly irregular - ASA Status ASA Status: III ANE Anesthesia Plan Anesthesia Plan: GA with mask
[2018-04-02] MEDS ORDERED: PROPOFOL/EMULSION 500 MG/50 ML BOTTLE IV ONE (15:58)
[2018-04-02] MEDS ORDERED: LIDOCAINE 2% 5 ML SDV ONE (15:58)
--- NOTE | 2018-04-02 16:08 | CPEKG ---
Test Reason : OPEN Blood Pressure : / mmHG Vent. Rate : 101 BPM Atrial Rate : 000 BPM P-R Int : 181 ms QRS Dur : 102 ms QT Int : 316 ms P-R-T Axes : 000 061 256 degrees QTc Int : 410 ms Atrial fibrillation Ventricular premature complex Low voltage, extremity leads Nonspecific repol abnormality, diffuse leads Confirmed by Angela Hdz ([id number]) on 04/02/2018 4:08:18 PM Referred By: Confirmed By:Angela Hdz
--- NOTE | 2018-04-02 16:21 | GIREPORT ---
[facility] - Endoscopy Department Patient Name: DIXON VICTOR Procedure Date: 04/02/2018 3:42 PM Patient Type: Inpatient Attending MD/ ER Physician: Jeff Sanchez MD Procedure: Upper GI endoscopy Indications: Acute post hemorrhagic anemia, Melena Providers: Jeff Sanchez MD Medicines: Propofol per Anesthesia Complications: No immediate complications. Description of Procedure: After obtaining informed consent, the endoscope was passed under direct vision. Throughout the procedure, the patient's blood pressure, pulse, and oxygen saturations were monitored continuously. The Endoscope was intro duced through the mouth, and advanced to the second part of duodenum. The [facility] er GI endoscopy was accomplished without difficulty. The patient tolerated th e procedure well. Findings: The Z-line was irregular and was found 45 cm from the incisors. Biopsie s were taken with a cold forceps for histology. A large, submucosal mass with central ulcer. No active bleeding but wit h pigmentation/stigmata of recent bleeding was found on the greater curva ture of the gastric body. Mass was 5 - 7 cm in size. The gastric antrum was normal. The examined duodenum was normal. Estimated Blood Loss: Estimated blood loss: none. Post Op Diagnosis: - Z-line irregular, 45 cm from the incisors. Biopsied. 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 - Normal antrum. - Normal examined duodenum. Recommendation: - Clear liquid diet. - Use Protonix (pantoprazole) 40 mg IV BID. - Thank you for allowing me to participate in the care of your patient. Attending Participation: I personally performed the entire procedure. Jeff Sanchez MD Jeff Sanchez MD 04/02/2018 4:21:02 PM This report has been signed electronicallyStevlaura Sanchez MD Number of Addenda: 0 Note Initiated On: 04/02/2018 3:42 PM [email or web address]
--- NOTE | 2018-04-02 16:22 | GCON ---
CHIEF COMPLAINT: A 72-year-old gentleman with melena and lightheadedness. HISTORY OF PRESENT ILLNESS: I have been asked to see this patient in consultation by Dr. Waters for evaluation of GI bleeding and melenic stool. Patient has a history of coronary disease status post stent placement. He has a history of hypertension. He has been on aspirin and he also takes meloxic am. The patient noted symptoms yesterday. He started feeling somewhat lightheaded. He had a near s yncopal episode. He described black and tarry stools along with some red blood in the toilet water. At 2 a.m. this morning he woke up and again felt lightheaded. He had a syncopal event and hit his h ead. He went to his PCP today and had another bowel movement with melenic stool. The patient was se nt to the emergency department. He has no prior history of ulcers. He presents today for further ev aluation. PAST MEDICAL HISTORY: Coronary disease, status post drug-eluting stent placed in May 2017, hyperte nsion, arthritis, gout, thoracic aneurysm, varicose veins, thyroid cancer, shoulder surgery, pilonida l cyst, left knee and hip surgery. SOCIAL HISTORY: The patient is , lives in [place]. Works at [employer]. Former smoker and h as not smoked in 50 years. Drinks 1-2 drinks of alcohol per week. ALLERGIES: Sulfa. HOME MEDICATIONS: Include albuterol, allopurinol, atorvastatin, vitamin D, herbal supplements, levot hyroxine, meloxicam, metoprolol, multivitamins, omega-3, vitamin B complex, Norvasc, tramadol, and hy drochlorothiazide. FAMILY HISTORY: Remarkable for malignant breast cancer, chronic kidney disease, hypertension, otherw ise negative or noncontributory per chief complaint. REVIEW OF SYSTEMS: Negative 10 systems as mentioned in HPI. PHYSICAL EXAM: VITAL SIGNS: 37.6, pulse 81, respiratory rate 16, 150/77, pulse ox 98 percent. GENER AL: A very pleasant gentleman lying in a stretcher. No acute distress. HEENT: Normocephalic, atraum atic, EOMI. Mucous membranes moist. NECK: Supple. No cervical adenopathy. LUNGS: Clear. CARDIAC: Normal S1, S2 without murmur. ABDOMEN: Benign and soft, nontender. No hepatosplenomegaly. EXTREMI TIES: Without clubbing, cyanosis, edema. NEURO: Nonfocal. SKIN: Warm, dry, intact. PSYCH: Alert, oriented x3 with normal affect. LABORATORY DATA: Hemoglobin of 9.7, hematocrit 27.7. Serum chemistries: Serum sodium 142, potassiu m 3.7, chloride 105, BUN of 71, creatinine 0.9. IMPRESSION: A 72-year-old male with a history of coronary disease on meloxicam and aspirin. Patient with melenic stool consistent with upper gastrointestinal bleed. Suspect nonsteroidal anti-inflamma tory drug induced ulceration. Rule out significant gastritis, peptic ulcer disease, malignancy. RECOMMENDATIONS: 1. N.p.o. 2. IV pantoprazole 40 mg twice daily. 3. Serial H and H. 4. Proceed with urgent endoscopy. Will follow with you. /[id number]/MODL
--- NOTE | 2018-04-02 16:50 | HOSPPROG ---
Hospitalist Progress Note Assessment/Plan: Chart reviewed, case discussed with Angela Zapata COLLECTION COORDINATOR. Pt in endoscopy this afternoon. Agree with plan as outlined in H&P. Syncope 2/2 UGIB - trend h&h, EGD today, cont PPI, hold DAPT and NSAIDS A fib - new dx, no rvr. Agree with echo and TSH. Chads-vasc at least 3, may need to consider anticoagulation at a later date (contra-indicated with active UGIB) CAD - holding DAPT for now Hypertension - hold antihypertensives Objective: Vital Signs Temp Pulse Resp BP Pulse Ox 36.4 C 78 21 H 109/56 L 95 04/02/18 15:59 04/02/18 15:59 04/02/18 16:47 04/02/18 16:47 04/02/18 16:47 Laboratory Results 04/02/18 15:00 04/01/18 04/02/18 04/03/18 05:59 05:59 05:59 Intake Total 1000 Balance 1000 PT 16.1 SEC (12.0-15.0) H 04/02/18 10:56 INR 1.27 (0.83-1.16) H 04/02/18 10:56 ICD10 Worksheet Patient Problems: Problems Problem Status Onset Upper GI bleed Acute CAD (coronary artery disease) Acute
[2018-04-02] MEDS: PANTOPRAZOLE SODIUM 40 MG VIAL IVP SCH ×2 (18:17→21:17)
[2018-04-02] MEDS ORDERED: IOPAMIDOL (ISOVUE-370) 150 ML BTL IV ONE (18:28)
--- NOTE | 2018-04-02 19:17 | ECHO ---
[email or web address] [address] [address] Main: [phone] Fax: Transthoracic Echocardiogram Name: DIXON VICTOR MR#: [id number] Study Date: 04/02/2018 Study Time: 02:18 PM Date of : 1945 Age: 72 year(s) Height: 180.3 cm (71 in.) Weight: 99.79 kg (220 lb.) BSA: 2.2 m2 Gender: Male Examination: Indication: syncope episode, a fib on ekg Image Quality: Adequate Contrast: Requested by: Gisell Zapata BP: 120 mmHg/72 mmHg Heart Rate: Rhythm: Atrial fibrillation Indication: syncope episode, a fib on ekg Procedure Staff Web Pressman: Karis Covarrubias [facility] Reading Physician: Aline Castro MD Requesting Provider: Conclusions: Normal size left ventricle. Mild concentric LV hypertrophy. Normal global systolic LV function. The ejection fraction is estimated to be 55-60 %. No regional wall motion abnormality. Normal size right ventricle. Normal RV function. The left atrium is moderately dilated. The right atrium is moderately to severely dilated. Trivial to mild mitral regurgitation. Moderate aortic cusp calcification is present. Mild aortic valve regurgitation is present. Mild calcific aortic valve stenosis. Mild tricuspid regurgitation is present. Right ventricular systolic pressure measures 30mmHg. Dilated ascending aorta measuring 4.0 cm. Compared with 01/23/2017 overall similar findings except ascendingn aorta measured 4.8 on prior study likely technique difference. If patient has not had dedicated CT of the oarta would consider for clarification Measurements: Chambers Valvular Assessment AV/MV Valvular Assessment TV/PV Normal Normal Normal Name Value Range Name Value Range Name Value Range Ao Yany (MM): 3.9 cm (2.2 cm-3.7 AV Vmax: 2.57 m/s (1 m/s-1.7 TR Vmax: 2.50 mm/s ( - ) cm) m/s) TR PGmax: 25 mmHg ( - ) AV maxP mmHg ( - ) syst. PAP: 30 mmHg ( - ) Patient: DIXON VICTOR Study Date: 04/02/2018 Page 1 of 3 02:18 PM IVSd (2D): 1.2 cm (0.6 cm-1.1 AV meanP mmHg ( - ) PV Vmax: 1.14 m/s (0.6 m/s-0.9 cm) LVOT Vmax: 0.67 m/s (0.7 m/s-1.1 m/s) LVDd (2D): 5.3 cm (4.2 cm-5.9 m/s) PV PGmax: 5 mmHg ( - ) cm) GERTRUDE (Vmax): 1.0 cm2 ( - ) LVDs (2D): 4.0 cm (2.1 cm-4 GERTRUDE (VTI): 1.2 cm ( - ) cm) AR (PHT): 802 ms ( - ) LVPWd (2D): 1.1 cm (0.6 cm-1 MV E Vmax: 0.71 m/s ( - ) cm) LVOTd 2.2 cm 2.2 cm mm LVEF (2D): 46 (>=54 %) EF Range: 55-60 % RVDd(2D): 3.6 cm (1.9 cm-3.8 cmmm) Continued Measurements: Chambers Valvular Assessment AV/MV Valvular Assessment TV/PV Name Value Name Value Name Value LADs: 4.2 cm MV DecTime: 158 m/s CVP (est.): 5 mmHg LADs Lon.5 cm MV E/E' Septal: 7.70 LA Area: 28.3 cm2 MV E/E' Lateral: 6.10 LA Volume: 97 ml AR Vmax: 3.45 cm/s LA Volume Index: 44.1 ml/m2 TAPSE: 1.9 cm RA Area: 25.0 cm2 Additional Vessels Name Value Ao Ascendin.0 cm Findings: Left Ventricle: Normal size left ventricle. Mild concentric LV hypertrophy. Normal global systolic LV function. The ejection fraction is estimated to be 55-60 %. No regional wall motion abnormality. Unable to assess diastolic dysfunction. Right Ventricle: Normal size right ventricle. Normal RV function. Left Atrium: The left atrium is moderately dilated. Right Atrium: The right atrium is moderately to severely dilated. Mitral Valve: There is mild thickening of the mitral valve leaflets. Trivial to mild mitral regurgitation. No mitral stenosis is present. Aortic Valve: The aortic valve is tri-leaflet. Moderate aortic cusp calcification is present. Mild aortic valve regurgitation is present. Mild calcific aortic valve stenosis. Tricuspid Valve: The tricuspid valve appears normal. Mild tricuspid regurgitation is present. Right ventricular systolic pressure measures 30mmHg. Pulmonic Valve: Pulmonary valve not well visualized. Aorta: Normal size aortic root measuring 3.9 cm. Dilated ascending aorta measuring 4.0 cm. IVC: Normal size and course of the IVC. Patient: DIXON VICTOR Study Date: 04/02/2018 Page 2 of 3 02:18 PM (No Signature Object) Patient: DIXON VICTOR Study Date: 04/02/2018 Page 3 of 3 02:18 PM [id number]
[2018-04-02] MEDS: traZODone 100 MG TAB PO PRN (21:17)
[2018-04-03] MEDS: diphenhydrAMINE 25 MG CAP PO PRN ×2 (00:32→22:09)
[2018-04-03 03:22] LABS: PLATELET COUNT 137 10^3/uL (150-400)
[2018-04-03] MEDS: PANTOPRAZOLE SODIUM 40 MG VIAL IVP SCH ×4 (05:42→22:08)
[2018-04-03] MEDS: LEVOTHYROXINE 150 MCG TAB PO SCH (05:52)
[2018-04-03] MEDS: LEVOTHYROXINE 200 MCG TAB PO SCH (05:53)
--- NOTE | 2018-04-03 07:48 | SOAPPROG ---
SOAP Progress Note Assessment/Plan: Assessment: UGI bleed with large ulcerated submucosal mass in body/antrum. CT scan with mass seen on antrum described as lipoma. 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 Would recommend surgical removal given ulceration with bleeding. Plan: Surgical consult, case discussed with Amador Wilson. He will see patient today. May have sips of clear liquids with meds until seen by surgery. Continue on PPI 04/03/18 07:54 Subjective: CC: UGI Bleed No signs or symptoms of bleeding. No abdominal pain. Reports to be thirsty. Objective: Vital Signs Temp Pulse Resp BP Pulse Ox 36.8 C 85 20 101/50 L 94 04/03/18 02:55 04/03/18 02:55 04/03/18 02:55 04/03/18 02:55 04/03/18 02:55 Laboratory Results 04/03/18 02:55 04/02/18 04/03/18 04/04/18 05:59 05:59 05:59 Intake Total 2761 Output Total 1302 Balance 1459 PT 16.1 SEC (12.0-15.0) H 04/02/18 10:56 INR 1.27 (0.83-1.16) H 04/02/18 10:56 Generic Name Dose Route Start Last Admin Trade Name Freq PRN Reason Stop Dose Admin Acetaminophen 650 mg 04/02/18 11:45 Tylenol PO 09/29/18 11:44 Q4HRS PRN Pain, Mild/Fever, Can Take PO Albuterol 1 - 2 puffs 04/02/18 13:51 Proventil Inhaler 09/29/18 13:50 DAILY PRN Short of Breath/Dyspnea Allopurinol 300 mg 04/03/18 09:00 Allopurinol PO 09/30/18 08:59 DAILY MONIK Atorvastatin Calcium 40 mg 04/03/18 09:00 Lipitor PO 09/30/18 08:59 DAILY MONIK Cholecalciferol 1,000 units 04/03/18 09:00 Vitamin D PO 09/30/18 08:59 DAILY MONIK Diphenhydramine HCl 25 mg 04/03/18 00:26 04/03/18 00:32 Benadryl PO 09/30/18 00:25 25 mg HS PRN Administration Insomnia Sodium Chloride 1,000 mls @ 75 mls/hr 04/02/18 11:45 04/02/18 14:52 Ns IV 09/29/18 11:44 1,000 mls CONT MONIK Administration Levothyroxine Sodium 150 mcg 04/03/18 06:00 04/03/18 05:52 Synthroid PO 09/30/18 05:59 Not Given DAILY06 MONIK Levothyroxine Sodium 200 mcg 04/03/18 06:00 04/03/18 05:53 Synthroid PO 09/30/18 05:59 Not Given DAILY06 MONIK Multivitamins 1 each 04/03/18 09:00 Tab-A-Jorge Luis PO 09/30/18 08:59 DAILY MONIK Ondansetron HCl 4 mg 04/02/18 11:45 Zofran IVP 09/29/18 11:44 Q4HRS PRN Nausea/Vomiting, Can't Take PO Ondansetron HCl 4 mg 04/02/18 11:45 Zofran Odt PO 09/29/18 11:44 Q4HRS PRN Nausea/Vomiting, Use 1st Pantoprazole Sodium 40 mg 04/02/18 17:00 04/03/18 05:52 Protonix IVP 09/29/18 16:59 40 mg Q6H MONIK Administration Tramadol HCl 50 mg 04/02/18 13:51 Ultram PO 09/29/18 13:50 Q6HRS PRN Pain, Moderate Trazodone HCl 100 mg 04/02/18 20:14 04/02/18 21:17 Trazodone PO 09/29/18 20:59 100 mg HS PRN Administration Sleep/Insomnia Vitamin B Complex 1 ea 04/03/18 09:00 Vitamin B Complex PO 09/30/18 08:59 DAILY MONIK Discontinued Medications Generic Name Dose Route Start Last Admin Trade Name Freq PRN Reason Stop Dose Admin Sodium Chloride 1,000 mls @ 0 mls/hr 04/02/18 11:02 04/02/18 11:06 Ns IV 04/02/18 11:03 1,000 mls EDNOW ONE Administration Protocol Wide Open Lactated Ringer's 1,000 mls @ 0 mls/hr 04/02/18 15:31 04/02/18 17:46 Lr IV 04/02/18 15:32 Not Given ONCE ONE As Directed Iopamidol Confirm 04/02/18 18:28 Isovue-370 Administered 04/02/18 18:29 Dose 150 ml IV .STK-MED ONE Lidocaine HCl Confirm 04/02/18 15:58 Xylocaine-Mpf 2% Vial Administered 04/02/18 15:59 Dose 5 ml .ROUTE .STK-MED ONE Miscellaneous Medication 1 each 04/03/18 09:00 Herbals/Supplements -Info Only PO 09/30/18 08:59 DAILY MONIK Pantoprazole Sodium 40 mg 04/02/18 11:03 04/02/18 11:10 Protonix IVP 04/02/18 11:04 40 mg EDNOW ONE Administration Propofol Confirm 04/02/18 15:58 Diprivan 10 Mg/Ml (Premix) Administered 04/02/18 15:59 Dose 500 mg IV .STK-MED ONE Physical Exam - Physical Exam General Appearance: alert, no apparent distress Respiratory: lungs clear, normal breath sounds Cardiac/Chest: regular rate, rhythm Abdomen: normal bowel sounds, non-tender, soft Skin: normal color, warm/dry Neuro/Psych: alert, normal mood/affect, oriented x 3 ICD10 Worksheet Patient Problems: Problems Problem Status Onset Upper GI bleed Acute CAD (coronary artery disease) Acute
[2018-04-03] MEDS: MULTIVITAMINS 1 EACH TAB PO SCH (07:57)
--- NOTE | 2018-04-03 08:23 | HOSPPROG ---
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 Hgb was 14 in 05/2017, 10 on arrival, now 7.9. -surgery to consult for resection, NPO at midnight for surgery tomorrow -cont PPI ABLA - will transfuse 1 u prbc's given CAD hx -trend h&h Syncope - 2/2 above, monitor on tele CAD with RCA stent 05/23/2017 - holding DAPT (plavix + ASA) due to bleeding -cardiology to consult for surgical clearance, ok with holding anti-platelets A fib - new dx, Chads-vasc 3, tsh <0.015, echo showed bi-atrial enlargement, mild AR. He is rate controlled. -defer anticoagulation for now with bleeding event, may be safe to start AC post-op when cleared by surg after tumor resected and bleeding source removed H/O thyroid cancer - TSH suppressed on high dose levothyroxine -cont levothyroxine Hypertension - holding anti-hypertensives with lowish BP is setting of GIB and ABLA -resume outpt meds as clinically indicated Dilated ascending aorta - noted to be 4.0 cm, previously was 4.8 cm -outpt CT for further confirmation Left cystic kidney lesion -u/s for further evaluation Azotemia - BUN elevated 2/2 UGIB DVT PPLX - SCD's, defer pharm with GIB Full code Dispo - cont inpt Subjective: Pt continues to have melena this am. Feels weak, woozy on his feet. Denies CP or SOB. No abdominal pain, N/V. Tolerating clears. Objective: Vital Signs Temp Pulse Resp BP Pulse Ox 36.8 C 85 20 101/50 L 94 04/03/18 02:55 04/03/18 02:55 04/03/18 02:55 04/03/18 02:55 04/03/18 02:55 Laboratory Results 04/03/18 02:55 04/02/18 04/03/18 04/04/18 05:59 05:59 05:59 Intake Total 2761 Output Total 1302 Balance 1459 PT 16.1 SEC (12.0-15.0) H 04/02/18 10:56 INR 1.27 (0.83-1.16) H 04/02/18 10:56 - Physical Exam Constitutional: no apparent distress Eyes: PERRL Ears, Nose, Mouth, Throat: moist mucous membranes Cardiovascular: regular rate and rhythym Respiratory: no respiratory distress, clear to auscultation Gastrointestinal: normoactive bowel sounds, soft, non-tender abdomen Skin: warm Musculoskeletal: full muscle strength Neurologic: AAOx3 Psychiatric: interacting appropriately ICD10 Worksheet Patient Problems: Problems Problem Status Onset Upper GI bleed Acute CAD (coronary artery disease) Acute
[2018-04-03] MEDS: ALLOPURINOL 300 MG TAB PO SCH (08:57)
[2018-04-03] MEDS: CHOLECALCIFEROL VIT D3 1,000 UNITS TAB PO SCH (08:57)
[2018-04-03] MEDS: VITAMIN B COMPLEX 1 EA CAP/TAB PO SCH (08:57)
[2018-04-03] MEDS: ATORVASTATIN CALCIUM 40 MG TAB PO SCH (08:57)
[2018-04-03] MEDS ORDERED: Herbals/Supplements -Info Only PO SCH (09:00)
--- NOTE | 2018-04-03 09:31 | GCON ---
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 HISTORY OF PRESENT ILLNESS: The patient is a 72-year-old male with a history of coronary artery dise ase with 2 coronary stents placed in May of 2017, on Plavix and aspirin, who presented with a day a nd a half of melena with 2 syncopal episodes, one with head strike. He presented to the emergency de partment yesterday. A CT scan of the head was negative for acute intracranial injury. A CT scan of the abdomen suggested a gastric antral submucosal lipoma as well as some other findings listed in the report. Gastroenterology was consulted and an upper endoscopy revealed a 5-7 cm submucosal mass wit h a central ulcer. No active bleeding was seen at the time of endoscopy. This was suspicious for a GIST tumor. He has been placed on Protonix and he is currently n.p.o. Patient continues to have melena this morning. He is about to receive blood today. Cardiology has isaias salas consulted for cardiac clearance. Of note, he has been in AFib, which is a new diagnosis. He is currently rate controlled and his Plavix and aspirin are being held. The patient denies any previous history of abdominal surgery. PAST MEDICAL HISTORY: Includes coronary artery disease as described above with 2 stents placed in [facility] of 2017, hypertension, arthritis, gout, thoracic aneurysm. PAST SURGICAL HISTORY: Includes bilateral total knee replacements, shoulder surgery, varicose vein s urgery, pilonidal cystectomy. HOME MEDICATIONS: Include albuterol, allopurinol, atorvastatin, vitamin D3, levothyroxine, meloxicam , metoprolol, multivitamin, omega-3 fatty acids, vitamin B complex, amlodipine, tramadol, hydrochloro thiazide, clopidogrel. FAMILY HISTORY: Per chart review includes hypertension, cancer, chronic kidney disease. SOCIAL HISTORY: The patient is a former smoker but has not smoked in 50 years. He lives in [place]. He is retired from sales and marketing and currently works at the [employer]. He is and dr ronnie socially. REVIEW OF SYSTEMS: 10-point review of systems was negative except for that in the HPI. PHYSICAL EXAMINATION: GENERAL: Reveals a well-developed, well-nourished 72-year-old male in no acut e distress. HEENT: Normocephalic, atraumatic. No marked pallor or pale conjunctiva. Sclerae white . CHEST: Clear to auscultation bilaterally. CARDIAC: Regular rate, irregular rhythm. ABDOMEN: S oft, nontender. Normoactive bowel sounds. EXTREMITIES: Warm and dry without edema. PSYCH: Normal mood and affect. SKIN: Warm and dry. 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 PLAN: Again, patient is to receive a blood transfusion today. Cardiology has been consulted for judit prado. Agree with holding Plavix and aspirin for now. We will add him on for surgery tomorrow for a laparoscopic, possible open partial gastrectomy. Risks and options have been discussed. The patie nt is ready to proceed. Dr. Wilson will also be seeing the patient, and he is aware of his presence. /[id number]/MODL
--- NOTE | 2018-04-03 14:03 | GHP ---
DATE OF ADMISSION: 04/02/2018 REASON FOR CONSULT: We were asked by Dr. Isabel Waters, hospitalist, to consult regarding his cardia c status prior to upcoming gastric surgery. HISTORY OF PRESENT ILLNESS: This is a 72-year-old male well known to [facility] with a history of coronary artery disease, having stents placed to the RCA in May 2017. He has compliantly been on Plavix and aspirin. He presented to his primary care physician 1 day ago with complaint of black sto ols. He had been experiencing dizziness and syncopal episodes the past 2 days prior. He then was ev aluated by Gastroenterology and had a GI endoscopy done 04/02/2018, finding a 5-7 cm large mass with a central ulcer. The final diagnosis was gastric tumor. Cardiology was consulted for pre-surgery evaluation due to noted atrial fibrillation. He does have a longstanding history of paroxysmal atrial fibrillation. Today, reviewing the farrowing worker, he is in atrial fibrillation with a controlled rate of 80 beats per minute. He has been followed closely by Dr. Jose Waddell with [facility] and had a cardiac angiogram in [facility] of 2017, having a PCI of the mid RCA. He has since been on Plavix and aspirin for antiplatelet a nd anticoagulation therapy. His Plavix and aspirin are now on hold due to his GI bleed. He has no c ardiac complaints of chest pain or shortness of breath. Prior to this, he has compliantly taken his Plavix and aspirin. PAST MEDICAL HISTORY: Coronary artery disease with PCI of the mid RCA in May 2017, hypertension, p aroxysmal atrial fibrillation, thoracic aneurysm. PAST SURGICAL HISTORY: Bilateral total knee replacement, shoulder surgery, varicose vein surgery, pi lonidal cystectomy. HOME MEDICATIONS: Albuterol, allopurinol, atorvastatin, vitamin D3, levothyroxine, multivitamin, ome ga-3 fatty acid, vitamin B complex, metoprolol, amlodipine, hydrochlorothiazide, clopidogrel, tramado l. FAMILY HISTORY: There is a family history of chronic kidney disease, cancer, and hypertension. SOCIAL HISTORY: Former smoker, stopping 50 years ago. He lives at home with his in [place]. H e works at [employer]. He drinks alcohol occasionally. REVIEW OF SYSTEMS: 10-point review of system negative, except for that noted in the HPI. PHYSICAL EXAM: GENERAL: He is a pleasant, well-nourished, 72-year-old male. HEENT: Normocephalic, atraumatic. Sclerae white. CHEST: Clear to auscultation. No wheezes, rales, or rhonchi. CARDIAC : Heart rate regular. Irregular rhythm. No murmurs, rubs, or gallops. ABDOMEN: Soft and nontende r. Normoactive bowel sounds. EXTREMITIES: Warm, with no edema noted. PSYCHOLOGICAL: Normal mood and affect. SKIN: Warm and dry, with no lesions. IMPRESSION AND PLAN: Echocardiogram done 04/02/2018, shows an ejection fraction of 55% to 60%. No w all motion abnormalities. Moderate aortic cusp calcification. No significant valvular abnormalities . Hemoglobin and hematocrit on 04/03/2018: Hemoglobin 7.9, hematocrit 22.6. He currently is being tra nsfused. Telemetry shows atrial fibrillation with a controlled rate of 83, blood pressure 107/60. Cardiac status currently stable. Paroxysmal atrial fibrillation is longstanding, dating back to 2014 . He has a CHADS-VASc of 3 based on age and hypertension. He remains on no anticoagulation due to g astrointestinal bleed. Recommendation is to proceed with planned surgery. His atrial fibrillation is well rate controlled. His coronary artery disease is stable with no anginal symptoms. He had a percutaneous coronary inte rvention of the mid right coronary artery in May of 2017, and compliantly maintained his Plavix and aspirin until the episode of recent bleeding. It has been appropriately held at this time. Echocardiogram showed no wall motion abnormalities with an ejection fraction of 55% to 60%. EKG done on 04/02/2018, shows atrial fibrillation which is rate controlled. No ischemic changes note d. The recommendation is to proceed with planned upcoming surgery. Should there be any cardiac concerns , please re-contact Cardiology to follow along. Thank you very much for asking us to be a part of this patient's care. /[id number]/MODL
--- NOTE | 2018-04-03 14:37 | ASMTCMCOM ---
CM Note CM Note Notes: Pt is a 72 yo M. here for gastric surgery. Pt lives with in [place]. Pt is undergoing surgery with Steve tomorrow. CM will follow to see if needs arise. Plan: TBD after surgery. Date Signed: 04/03/2018 02:36 PM Electronically Signed By:ANDREA Ingram
[2018-04-03] MEDS: traZODone 100 MG TAB PO PRN (22:09)
[2018-04-04] MEDS: PANTOPRAZOLE SODIUM 40 MG VIAL IVP SCH ×4 (04:26→22:18)
[2018-04-04] MEDS: LEVOTHYROXINE 200 MCG TAB PO SCH (04:28)
[2018-04-04] MEDS: LEVOTHYROXINE 150 MCG TAB PO SCH (04:28)
[2018-04-04] MEDS ORDERED: cefOXitin SODIUM 2 GM in NS 100 ML IV ONE (06:00)
--- NOTE | 2018-04-04 07:57 | SOAPPROG ---
SOAP Progress Note Assessment/Plan: Assessment: UGI bleed, submucosal mass with ulceration. Still passing some small amounts of melenic stool Slight drop in Hct but hemodynamically stable. Plan: Surgery for resection of gastric tumor today per Dr. Wilson. 04/04/18 07:57 Subjective: CC: GI Bleed No lightheadedness, still passing small amounts of stool that are melenic. Asymptomatic. Awaiting surgery. Objective: Vital Signs Temp Pulse Resp BP Pulse Ox 36.7 C 73 17 102/56 L 90 L 04/04/18 04:35 04/04/18 04:35 04/04/18 04:35 04/04/18 04:35 04/04/18 04:35 Laboratory Results 04/04/18 04:45 04/03/18 04/04/18 04/05/18 05:59 05:59 05:59 Intake Total 2761 1865 Output Total 1302 650 Balance 1459 1215 PT 16.1 SEC (12.0-15.0) H 04/02/18 10:56 INR 1.27 (0.83-1.16) H 04/02/18 10:56 Generic Name Dose Route Start Last Admin Trade Name Freq PRN Reason Stop Dose Admin Acetaminophen 650 mg 04/02/18 11:45 Tylenol PO 09/29/18 11:44 Q4HRS PRN Pain, Mild/Fever, Can Take PO Albuterol 1 - 2 puffs 04/02/18 13:51 Proventil Inhaler IH 09/29/18 13:50 DAILY PRN Short of Breath/Dyspnea Allopurinol 300 mg 04/03/18 09:00 04/03/18 08:57 Allopurinol PO 09/30/18 08:59 300 mg DAILY MONIK Administration Atorvastatin Calcium 40 mg 04/03/18 09:00 04/03/18 08:57 Lipitor PO 09/30/18 08:59 40 mg DAILY MONIK Administration Cholecalciferol 1,000 units 04/03/18 09:00 04/03/18 08:57 Vitamin D PO 09/30/18 08:59 1,000 units DAILY MONIK Administration Diphenhydramine HCl 25 mg 04/03/18 00:26 04/03/18 22:09 Benadryl PO 09/30/18 00:25 25 mg HS PRN Administration Insomnia Sodium Chloride 1,000 mls @ 75 mls/hr 04/02/18 11:45 04/02/18 14:52 Ns IV 09/29/18 11:44 1,000 mls CONT MONIK Administration Levothyroxine Sodium 150 mcg 04/03/18 06:00 04/04/18 04:28 Synthroid PO 09/30/18 05:59 150 mcg DAILY06 MONIK Administration Levothyroxine Sodium 200 mcg 04/03/18 06:00 04/04/18 04:28 Synthroid PO 09/30/18 05:59 200 mcg DAILY06 MONIK Administration Multivitamins 1 each 04/03/18 09:00 04/03/18 07:57 Tab-A-Jorge Luis PO 09/30/18 08:59 Not Given DAILY MONIK Ondansetron HCl 4 mg 04/02/18 11:45 Zofran IVP 09/29/18 11:44 Q4HRS PRN Nausea/Vomiting, Can't Take PO Ondansetron HCl 4 mg 04/02/18 11:45 Zofran Odt PO 09/29/18 11:44 Q4HRS PRN Nausea/Vomiting, Use 1st Pantoprazole Sodium 40 mg 04/02/18 17:00 04/04/18 04:26 Protonix IVP 09/29/18 16:59 40 mg Q6H MONIK Administration Tramadol HCl 50 mg 04/02/18 13:51 Ultram PO 09/29/18 13:50 Q6HRS PRN Pain, Moderate Trazodone HCl 100 mg 04/02/18 20:14 04/03/18 22:09 Trazodone PO 09/29/18 20:59 100 mg HS PRN Administration Sleep/Insomnia Vitamin B Complex 1 ea 04/03/18 09:00 04/03/18 08:57 Vitamin B Complex PO 09/30/18 08:59 1 ea DAILY MONIK Administration Discontinued Medications Generic Name Dose Route Start Last Admin Trade Name Freq PRN Reason Stop Dose Admin Sodium Chloride 1,000 mls @ 0 mls/hr 04/02/18 11:02 04/02/18 11:06 Ns IV 04/02/18 11:03 1,000 mls EDNOW ONE Administration Protocol Wide Open Lactated Ringer's 1,000 mls @ 0 mls/hr 04/02/18 15:31 04/02/18 17:46 Lr IV 04/02/18 15:32 Not Given ONCE ONE As Directed Cefoxitin Sodium 2 gm/ Sodium 100 mls @ 200 mls/hr 04/04/18 06:00 Chloride IV 04/04/18 06:29 ONCALL ONE Protocol Iopamidol Confirm 04/02/18 18:28 Isovue-370 Administered 04/02/18 18:29 Dose 150 ml IV .STK-MED ONE Lidocaine HCl Confirm 04/02/18 15:58 Xylocaine-Mpf 2% Vial Administered 04/02/18 15:59 Dose 5 ml .ROUTE .STK-MED ONE Miscellaneous Medication 1 each 04/03/18 09:00 Herbals/Supplements -Info Only PO 09/30/18 08:59 DAILY MONIK Pantoprazole Sodium 40 mg 04/02/18 11:03 04/02/18 11:10 Protonix IVP 04/02/18 11:04 40 mg EDNOW ONE Administration Propofol Confirm 04/02/18 15:58 Diprivan 10 Mg/Ml (Premix) Administered 04/02/18 15:59 Dose 500 mg IV .STK-MED ONE Physical Exam - Physical Exam General Appearance: alert, no apparent distress Respiratory: lungs clear, normal breath sounds Cardiac/Chest: regular rate, rhythm Abdomen: normal bowel sounds, non-tender, soft Skin: normal color, warm/dry Extremities: non-tender Neuro/Psych: alert, normal mood/affect, oriented x 3 ICD10 Worksheet Patient Problems: Problems Problem Status Onset Upper GI bleed Acute CAD (coronary artery disease) Acute
[2018-04-04] MEDS: MULTIVITAMINS 1 EACH TAB PO SCH (08:42)
[2018-04-04] MEDS: ATORVASTATIN CALCIUM 40 MG TAB PO SCH (08:42)
[2018-04-04] MEDS: CHOLECALCIFEROL VIT D3 1,000 UNITS TAB PO SCH (08:42)
[2018-04-04] MEDS: VITAMIN B COMPLEX 1 EA CAP/TAB PO SCH (08:43)
[2018-04-04] MEDS: ALLOPURINOL 300 MG TAB PO SCH (08:43)
--- NOTE | 2018-04-04 09:49 | HOSPPROG ---
Hospitalist Progress Note Assessment/Plan: * UGIB due to gastric tumor -to OR today for resection -continue PPI * ABL anemia s/p transfusion -melena has stopped, H/H stable * CAD/RCA stent 05/23/17 -holding ASA/Plavix * Afib -consider anti-coag post surgery for stroke reduction * h/o thyroid cancer -TSH suppressed on high dose levothyroxine * HTN -holding BP meds * Dilated ascending aorta -outpatient follow-up * Renal cysts -no further w/u needed * Bladder thickening -outpatient cystoscopy Subjective: no new complaints Objective: Vital Signs Temp Pulse Resp BP Pulse Ox 36.8 C 72 16 97/58 L 93 04/04/18 08:10 04/04/18 08:10 04/04/18 08:10 04/04/18 08:10 04/04/18 08:10 Laboratory Results 04/04/18 04:45 04/03/18 04/04/18 04/05/18 05:59 05:59 05:59 Intake Total 2761 1865 Output Total 1302 650 Balance 1459 1215 PT 16.1 SEC (12.0-15.0) H 04/02/18 10:56 INR 1.27 (0.83-1.16) H 04/02/18 10:56 CT abd - submucosal lipoma, bladder thickening EKG viewed, my personal interpretation is - lateral TWI - Physical Exam Constitutional: no apparent distress, appears nourished, not in pain Cardiovascular: regular rate and rhythym, no murmur, rub, or gallop Respiratory: no respiratory distress, no rales or rhonchi, clear to auscultation Gastrointestinal: normoactive bowel sounds, soft, non-tender abdomen, no palpable masses Skin: no rashes or abrasions, no fluctuance, no induration Neurologic: AAOx3, sensation intact bilaterally Psychiatric: interacting appropriately, not anxious, not encephalopathic, thought process linear ICD10 Worksheet Patient Problems: Problems Problem Status Onset Upper GI bleed Acute CAD (coronary artery disease) Acute
[2018-04-04] MEDS ORDERED: LIDOCAINE 1% 2 ML INJ ID PRN (10:24)
[2018-04-04] MEDS ORDERED: LR 1,000 ML IV ONE (10:24)
[2018-04-04] MEDS ORDERED: BUPIVACAINE 0.5% 30 ML SDV ONE (11:30)
[2018-04-04] MEDS ORDERED: MIDAZOLAM 2 MG/2 ML VIAL IVP ONE (11:34)
--- NOTE | 2018-04-04 11:34 | PDANEPAE ---
ANE History of Present Illness partial gastrectomy ANE Past Medical History - Cardiovascular History Hx Hypertension: Yes Hx Arrhythmias: Yes Hx Chest Pain: Yes Hx Coronary Artery / Peripheral Vascular Disease: Yes Hx CHF / Valvular Disease: No Hx Palpitations: No - Pulmonary History Hx COPD: Yes Hx Asthma/Reactive Airway Disease: Yes Hx Recent Upper Respiratory Infection: No Hx Oxygen in Use at Home: No Hx Sleep Apnea: No Sleep Apnea Screening Result - Last Documented: Positive Pulmonary History Comment: uses inhaler seasonally - Neurologic History Hx Cerebrovascular Accident: No Hx Seizures: No Hx Dementia: No - Endocrine History Hx Diabetes: No Hypothyroid: No Hyperthyroid: No Obesity: no - Renal History Hx Renal Disorders: No - Liver History Hx Hepatic Disorders: No - Neurological & Psychiatric Hx Hx Neurological and Psychiatric Disorders: No - Cancer History Hx Cancer: Yes Cancer History Comment: thyroid CA - Congenital Disorder History Hx Congenital Disorders: No - GI History GERD: no Hx Gastrointestinal Disorders: No - Chronic Pain History Chronic Pain: No - Surgical History Prior Surgeries: left knee arthroscopies,. left shoulder arthroscopy ANE Review of Systems Review of Systems: - Exercise capacity Exercise capacity: >=4 METS METS (RN): 4 METS ANE Patient History - Allergies Allergies/Adverse Reactions: sulfamethoxazole [From Bactrim] Allergy (Verified 05/02/17 10:20) Swelling/neck,face,throat trimethoprim [From Bactrim] Allergy (Verified 05/02/17 10:20) Swelling/neck,face,throat - Home Medications Home medications: home medication list seen and reviewed Home Medications: Albuterol [Proventil Inhaler HFA (*)] 1 - 2 puffs IH DAILY PRN 05/02/17 [Last Taken 05/22/17] Allopurinol [Allopurinol 300 MG (RX)] 300 mg PO DAILY 05/02/17 [Last Taken 04/01] Atorvastatin Calcium [Lipitor 40 mg (*)] 40 mg PO DAILY 05/02/17 [Last Taken ] Cholecalciferol Vit D3 [Vitamin D3 (*)] 1,000 units PO DAILY 05/02/17 [Last Taken 04/01/18] Herbals/Supplements -Info Only 1 ea PO DAILY 05/02/17 [Last Taken 05/22/17] Levothyroxine [Synthroid 150 mcg (*)] 150 mcg PO DAILY06 05/02/17 [Last Taken ] Levothyroxine [Synthroid 200 mcg (*)] 200 mcg PO DAILY06 05/02/17 [Last Taken ] Meloxicam 15 mg PO DAILY 05/02/17 [Last Taken 04/01/18] Metoprolol Succinate Xr [Toprol Xl 25 mg (*)] 25 mg PO DAILY 05/02/17 [Last Taken 04/01/18] Multivitamins [Multivitamin (*)] 1 each PO DAILY 05/02/17 [Last Taken 04/01/18] Parker-3 Fatty Acids [Fish Oil 1000 mg (*)] 1,000 mg PO DAILY 05/02/17 [Last Taken 04/01/18] Vit B Comp/C/Folic/Iron/Vit E [Vitamin B Complex Tablet] 1 each PO DAILY [Last Taken 04/01/18] amLODIPine BESYLATE [Norvasc 5 mg (*)] 5 mg PO DAILY 05/02/17 [Last Taken ] traMADol [Ultram 50 mg (*)] 50 mg PO Q6HRS PRN 05/02/17 [Last Taken 05/22/17] Hydrochlorothiazide [HCTZ (*)] 25 mg PO DAILY 04/02/18 [Last Taken 04/01/18] - NPO status NPO Status: no food or drink >8 hours NPO Since - Liquids (Date): 04/04/18 NPO Since - Liquids (Time): 00:00 NPO Since - Solids (Date): 04/04/18 NPO Since - Solids (Time): 00:00 - Smoking Hx Smoking Status: Former smoker - Alcohol Use Alcohol Use: Rarely ANE Labs/Vital Signs - Labs Result Diagrams: 04/04/18 04:45 04/02/18 10:56 - Vital Signs Blood Pressure: 115/69 Heart Rate: 61 Respiratory Rate: 14 O2 Sat (%): 96 Height: 180.34 cm Weight: 99.79 kg ANE Physical Exam - Airway Mallampati Score: Class 2 - Pulmonary Pulmonary: no respiratory distress - Cardiovascular Cardiovascular: regular rate and rhythym - ASA Status ASA Status: III ANE Anesthesia Plan Anesthesia Plan: general endotracheal anesthesia
[2018-04-04] MEDS ORDERED: fentaNYL 100 MCG/2 ML INJ ONE (11:46)
[2018-04-04] MEDS ORDERED: PROPOFOL 200 MG/20 ML VIAL ONE (11:46)
[2018-04-04] MEDS ORDERED: DEXAMETHASONE 4 MG/ML VIAL ONE (11:47)
[2018-04-04] MEDS ORDERED: KETOROLAC 30 MG/1 ML SDV ONE (11:47)
[2018-04-04] MEDS ORDERED: LIDOCAINE 2% 5 ML SDV ONE ×2 (11:47)
[2018-04-04] MEDS ORDERED: ROCURONIUM 100 MG/10 ML VIAL ONE (11:47)
[2018-04-04] MEDS ORDERED: ONDANSETRON 4 MG/2 ML VIAL ONE (11:47)
[2018-04-04] MEDS ORDERED: SUCCINYLCHOLINE CHLORIDE 200 MG/10 ML SYR IVP ONE (12:07)
[2018-04-04] MEDS ORDERED: PHENYLEPHRINE 10 MG/ML SDV ONE (12:47)
[2018-04-04] MEDS ORDERED: fentaNYL 100 MCG/2 ML INJ IVP PRN (13:45)
[2018-04-04] MEDS ORDERED: PROMETHAZINE HCL 25 MG/ML INJ IVP PRN (13:45)
[2018-04-04] MEDS ORDERED: PHENYLEPHRINE HCL 100 MCG/ML SYR IVP PRN (13:45)
[2018-04-04] MEDS ORDERED: ONDANSETRON 4 MG/2 ML VIAL IVP PRN (13:45)
[2018-04-04] MEDS ORDERED: LR 500 ML IV PRN (13:45)
[2018-04-04] MEDS ORDERED: NALOXONE HCL 0.4 MG/ML INJ IVP PRN (13:45)
[2018-04-04] MEDS ORDERED: ALBUTEROL 3 ML DEYVIAL IH PRN (13:45)
[2018-04-04] MEDS ORDERED: HYDROmorphONE/DILAUDID 2 MG/ML INJ IVP PRN (13:45)
--- NOTE | 2018-04-04 13:45 | POSTANESTH ---
Post Anesthetic Evaluation Cardiovascular Status: Normal, Stable Respiratory Status: Normal, Stable Level of Consciousness/Mental Status: Can Participate in Eval Pain Control: Adequate, Prn Tx Ordered Nausea/Vomiting Control: Adequate, Prn Tx Ordered Complications Possibly Related to Anesthesia: None Noted
--- NOTE | 2018-04-04 13:47 | POSTOPPROG ---
Post Op Note Date of Operation: 04/04/18 Surgeon: Desmond Wilson Planer Chain Offbearer: Lizbeth Anesthesiologist: Dwight Anesthesia: GET(General Endotracheal) Pre-op Diagnosis: Stomach mass, GI bleed Post-op Diagnosis: Lipoma of the stomach Indication: GI bleed Procedure: Lap partial gastrectomy Findings: Path showed lipoma of stomach Inf/Abcess present in the surg proc area at time of surgery?: No Depth: Organ Space EBL: Minimal Specimen(s): Stomach mass
[2018-04-04] MEDS ORDERED: HYDROmorphONE/DILAUDID 1 MG/ML INJ IVP PRN (13:58)
[2018-04-04] MEDS: oxyCODONE IR 5 MG TAB PO PRN ×2 (14:59→20:14)
[2018-04-04] MEDS: traMADol 50 MG TAB PO PRN (19:23)
[2018-04-04] MEDS: NS 1,000 ML IV SCH (20:01)
[2018-04-04] MEDS: traZODone 100 MG TAB PO PRN (22:18)
[2018-04-05 05:03] LABS: PLATELET COUNT 120 10^3/uL (150-400)
[2018-04-05] MEDS: oxyCODONE IR 5 MG TAB PO PRN ×2 (05:12→18:47)
[2018-04-05] MEDS: PANTOPRAZOLE SODIUM 40 MG VIAL IVP SCH ×3 (05:15→20:31)
[2018-04-05] MEDS: LEVOTHYROXINE 150 MCG TAB PO SCH (05:16)
[2018-04-05] MEDS: LEVOTHYROXINE 200 MCG TAB PO SCH (05:16)
--- NOTE | 2018-04-05 09:15 | SOAPPROG ---
SOAP Progress Note Assessment/Plan: Assessment: 72 y/o M s/p laparoscopic partial gastrectomy for tumor resection. Initial path showing benign lipoma. POD #1 New onset A-fib. EKG. Will need cardiology consult. Holding metoprolol for bradycardia. Continue clear liquid diet. Advised pt to go slow with this. Dispo: pending clinical course S: Doing well overall. Passed gas this am. Tolerating clears. Denies nausea. Denies cardiac symptoms. O:Alert Afebrile VSS H&H stable Cardiac: irregularly irregular Chest: ctab, no increased wob Abdomen: soft, appropriately ttp, normoactive BS, incisions cdi 04/05/18 09:11 Objective: Vital Signs Temp Pulse Resp BP Pulse Ox 36.6 C 60 18 104/58 L 96 04/05/18 07:19 04/05/18 07:19 04/05/18 07:19 04/05/18 07:19 04/05/18 07:19 Laboratory Results 04/05/18 04:30 04/04/18 04/05/18 04/06/18 05:59 05:59 05:59 Intake Total 1865 1550 1150 Output Total 650 1100 Balance 7160 900 0610 PT 16.1 SEC (12.0-15.0) H 04/02/18 10:56 INR 1.27 (0.83-1.16) H 04/02/18 10:56 ICD10 Worksheet Patient Problems: Problems Problem Status Onset Upper GI bleed Acute CAD (coronary artery disease) Acute
--- NOTE | 2018-04-05 10:24 | PDCARCONS ---
Cardiology Consult Reason for Consult: The patient has had bradycardia with rates documented as low as 30bpm. He has a history of paroxysmal atrial fibrillation without symptoms. The patient also has intermittent sinus arrest and pauses documented to 2.4 seconds. Chief Complaint: Paroxysmal atrial fibrillation with intermittent bradycardia sinus arrest and pauses. History of Present Illness: Ridge is a 72 year old esvin with a history of paroxysmal atrial fibrillation, CAD on the basis of a calcium score of 1600 and stent implantation of the RCA in May of last year, hypertension on treatment, thoracic aortic aneurysm, and remote thyroid cancer. He passsed a melanotic stool prior to his admission and had a syncopal spell. He had a coupe of other spells of near syncope recently. He was found to have a possible gastric tumor and underwent laparoscopic gastrectomy under the care of Dr. Wilson. He was found to have a fatty lipoma ( path pending) erosion into the stomach lining. Overnight he was noted to have atrial fibrillation with intermittent slow ventricular response, sinus arrest and pauses of 2.4 seconds. The patient was asymptomatic, because he was asleep at the time. He does state that he missed the last 2 days of his thyroid medication, and he wonders if that might be a problem with his heart rate. History Information - Allergies/Home Medication List Allergies/Adverse Reactions: sulfamethoxazole [From Bactrim] Allergy (Verified 05/02/17 10:20) Swelling/neck,face,throat trimethoprim [From Bactrim] Allergy (Verified 05/02/17 10:20) Swelling/neck,face,throat Home Medications: Albuterol [Proventil Inhaler HFA (*)] 1 - 2 puffs IH DAILY PRN 05/02/17 [Last Taken 05/22/17] Allopurinol [Allopurinol 300 MG (RX)] 300 mg PO DAILY 05/02/17 [Last Taken 04/01] Atorvastatin Calcium [Lipitor 40 mg (*)] 40 mg PO DAILY 05/02/17 [Last Taken ] Cholecalciferol Vit D3 [Vitamin D3 (*)] 1,000 units PO DAILY 05/02/17 [Last Taken 04/01/18] Herbals/Supplements -Info Only 1 ea PO DAILY 05/02/17 [Last Taken 05/22/17] Levothyroxine [Synthroid 150 mcg (*)] 150 mcg PO DAILY06 05/02/17 [Last Taken ] Levothyroxine [Synthroid 200 mcg (*)] 200 mcg PO DAILY06 05/02/17 [Last Taken ] Meloxicam 15 mg PO DAILY 05/02/17 [Last Taken 04/01/18] Metoprolol Succinate Xr [Toprol Xl 25 mg (*)] 25 mg PO DAILY 05/02/17 [Last Taken 04/01/18] Multivitamins [Multivitamin (*)] 1 each PO DAILY 05/02/17 [Last Taken 04/01/18] [place]-3 Fatty Acids [Fish Oil 1000 mg (*)] 1,000 mg PO DAILY 05/02/17 [Last Taken 04/01/18] Vit B Comp/C/Folic/Iron/Vit E [Vitamin B Complex Tablet] 1 each PO DAILY [Last Taken 04/01/18] amLODIPine BESYLATE [Norvasc 5 mg (*)] 5 mg PO DAILY 05/02/17 [Last Taken ] traMADol [Ultram 50 mg (*)] 50 mg PO Q6HRS PRN 05/02/17 [Last Taken 05/22/17] Hydrochlorothiazide [HCTZ (*)] 25 mg PO DAILY 04/02/18 [Last Taken 04/01/18] I have personally reviewed and updated: family history, medical history, social history, surgical history Past Medical History: - Past Medical History atrial fibrillation, coronary artery disease, hypertension, hyperlipidemia - Surgical History Reports: cancer surgery, coronary stent Additional surgical history: prior cardioversion, throid cancer surgery 1969 - Family History Positive for: cancer, hypertension - Social History Smoking Status: Former smoker Alcohol Use: Rarely Drug Use: None Cardiac History - Cardiac History Past Cardiac History: CAD, PCI Cardiac Risk Factors: hypertension (>140/90), age > 65, male Age in Years: 65-74 (Patient is on Plavix) Sex: Male Congestive Heart Failure History: No Hypertension History: Yes Stroke/TIA/Thromboembolism History: No Vascular Disease History: Yes Diabetes Mellitus: No [id number] Score: 3 Physical Exam Physical Exam: Temp Pulse Resp BP Pulse Ox 36.6 C 60 18 104/58 L 96 04/05/18 07:19 04/05/18 07:19 04/05/18 07:19 04/05/18 07:19 04/05/18 07:19 O2 (L/minute) 1 Constitutional: no apparent distress Eyes: PERRL, anicteric sclera Ears, Nose, Mouth, Throat: moist mucous membranes Cardiovascular: irregularly irregular Respiratory: no respiratory distress Gastrointestinal: normoactive bowel sounds Skin: warm, normal color Neurologic: AAOx3 Psychiatric: interacting appropriately Lab and Imaging 04/05/18 04:30 04/02/18 10:56 WBC 5.79 10^3/uL (3.80-9.50) 04/05/18 04:30 RBC 2.50 10^6/uL (4.40-6.38) L 04/05/18 04:30 Hgb 8.5 g/dL (13.7-17.5) L 04/05/18 04:30 POC Hgb 10.2 gm/dL (13.7-17.5) L 04/02/18 11:03 Hct 25.4 % (40.0-51.0) L 04/05/18 04:30 POC Hct 30 % (40-51) L 04/02/18 11:03 MCV 101.6 fL (81.5-99.8) H 04/05/18 04:30 MCH 34.0 pg (27.9-34.1) 04/05/18 04:30 MCHC 33.5 g/dL (32.4-36.7) 04/05/18 04:30 RDW 15.2 % (11.5-15.2) 04/05/18 04:30 Plt Count 120 10^3/uL (150-400) L 04/05/18 04:30 MPV 11.8 fL (8.7-11.7) H 04/05/18 04:30 Neut % (Auto) 81.4 % (39.3-74.2) H 04/05/18 04:30 Lymph % (Auto) 10.9 % (15.0-45.0) L 04/05/18 04:30 Spencer % (Auto) 7.1 % (4.5-13.0) 04/05/18 04:30 Eos % (Auto) 0.2 % (0.6-7.6) L 04/05/18 04:30 Baso % (Auto) 0.2 % (0.3-1.7) L 04/05/18 04:30 Nucleat RBC Rel Count 0.0 % (0.0-0.2) 04/05/18 04:30 Absolute Neuts (auto) 4.72 10^3/uL (1.70-6.50) 04/05/18 04:30 Absolute Lymphs (auto) 0.63 10^3/uL (1.00-3.00) L 04/05/18 04:30 Absolute Monos (auto) 0.41 10^3/uL (0.30-0.80) 04/05/18 04:30 Absolute Eos (auto) 0.01 10^3/uL (0.03-0.40) L 04/05/18 04:30 Absolute Basos (auto) 0.01 10^3/uL (0.02-0.10) L 04/05/18 04:30 Absolute Nucleated RBC 0.00 10^3/uL (0-0.01) 04/05/18 04:30 Immature Gran % 0.2 % (0.0-1.1) 04/05/18 04:30 Immature Gran # 0.01 10^3/uL (0.00-0.10) 04/05/18 04:30 PT 16.1 SEC (12.0-15.0) H 04/02/18 10:56 INR 1.27 (0.83-1.16) H 04/02/18 10:56 POC Sodium 142 mEq/L (135-145) 04/02/18 11:03 Sodium 139 mEq/L (135-145) 04/02/18 10:56 POC Potassium 3.7 mEq/L (3.3-5.0) 04/02/18 11:03 Potassium 4.0 mEq/L (3.5-5.2) 04/02/18 10:56 POC Chloride 105 mEq/L (97-110) 04/02/18 11:03 Chloride 109 mEq/L (97-110) 04/02/18 10:56 Carbon Dioxide 23 mEq/l (22-31) 04/02/18 10:56 Anion Gap 7 mEq/L (6-14) 04/02/18 10:56 POC BUN 71 mg/dL (7-23) H 04/02/18 11:03 BUN 75 mg/dL (7-23) H 04/02/18 10:56 Creatinine 0.9 mg/dL (0.7-1.3) 04/02/18 10:56 POC Creatinine 1.0 mg/dL (0.7-1.3) 04/02/18 11:03 Estimated GFR > 60 04/02/18 10:56 Glucose 88 mg/dL (70-100) 04/02/18 10:56 POC Glucose 90 mg/dL (70-100) 04/02/18 11:03 Calcium 8.9 mg/dL (8.5-10.4) 04/02/18 10:56 Total Bilirubin 0.8 mg/dL (0.1-1.4) 04/02/18 10:56 Conjugated Bilirubin 0.5 mg/dL (0.0-0.5) 04/02/18 10:56 Unconjugated Bilirubin 0.3 mg/dL (0.0-1.1) 04/02/18 10:56 AST 24 IU/L (17-59) 04/02/18 10:56 ALT 26 IU/L (21-72) 04/02/18 10:56 Alkaline Phosphatase 54 IU/L (38-126) 04/02/18 10:56 POC Troponin I 0.00 ng/mL (0.00-0.08) 04/02/18 11:03 Troponin I < 0.012 ng/mL (0.000-0.034) 04/02/18 10:56 Total Protein 5.6 g/dL (6.3-8.2) L 04/02/18 10:56 Albumin 3.2 g/dL (3.5-5.0) L 04/02/18 10:56 Lipase 148 IU/L (23-300) 04/02/18 10:56 TSH < 0.015 uIU/mL (0.465-4.680) L 04/02/18 10:56 Free T4 1.70 ng/dL (0.59-2.19) 04/03/18 02:55 Free T3 2.78 pg/mL (2.77-5.27) 04/03/18 02:55 Stool Occult Bld Scrn POSITIVE (NEGATIVE) H 04/02/18 10:56 Patient ABO/Rh O POSITIVE 04/02/18 10:56 Antibody Screen NEGATIVE 04/02/18 10:56 Crossmatch IS Only See Detail 04/02/18 10:56 Visualized and Interpreted EKG results: No EKG additional interpertation: intermittent a fib with rapid ventricular with initially lateral injury pattern now with anterolateral injury pattern A/P Assessment: The patient has afib with intermittent sinus arrest and pauses lasting 2 to 3 seconds. He had symptoms during an active GI bleed that may be consistent with higher AV block or longer pauses. We will monitor the patient on telemetry overnight if he has symptomatic bradycardia or prolonged pauses, he can be considered for VANIA/Cardioversion followed by dual chamber pacemaker insertion vs allowing the patient to remain in afib and placing a single lead ventricular pacemaker. Dr. Berry Waddell is extraction supervisor over the weekend who is the patient's primary chimney repairer and will provide final dispensations. The patient may benefit from plumbing mechanic anticoagulation given his CHADS-VASC score is 3.
[2018-04-05] MEDS: NS 1,000 ML IV SCH (10:53)
[2018-04-05] MEDS: MULTIVITAMINS 1 EACH TAB PO SCH (12:26)
[2018-04-05] MEDS: VITAMIN B COMPLEX 1 EA CAP/TAB PO SCH (12:26)
[2018-04-05] MEDS: ALLOPURINOL 300 MG TAB PO SCH (12:26)
[2018-04-05] MEDS: ATORVASTATIN CALCIUM 40 MG TAB PO SCH (12:26)
[2018-04-05] MEDS: CHOLECALCIFEROL VIT D3 1,000 UNITS TAB PO SCH (12:26)
--- NOTE | 2018-04-05 17:22 | HOSPPROG ---
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 -continue PPI * ABL anemia s/p transfusion -H/H stable * CAD/RCA stent 05/23/17 -restart ASA/Plavix when okay with surgery * Afib -3 second pauses noted on tele - may need PCM -holding metoprolol -consider anti-coag post procedures for stroke reduction * h/o thyroid cancer -TSH suppressed on high dose levothyroxine * HTN -holding BP meds * Dilated ascending aorta -outpatient follow-up * Renal cysts -no further w/u needed * Bladder thickening -outpatient cystoscopy Subjective: denies dizzy spells Objective: Vital Signs Temp Pulse Resp BP Pulse Ox 36.6 C 61 18 133/72 H 93 04/05/18 14:49 04/05/18 14:49 04/05/18 14:49 04/05/18 14:49 04/05/18 14:49 Laboratory Results 04/05/18 04:30 04/04/18 04/05/18 04/06/18 05:59 05:59 05:59 Intake Total 1865 1550 2150 Output Total 650 1100 Balance 7483 399 3313 PT 16.1 SEC (12.0-15.0) H 04/02/18 10:56 INR 1.27 (0.83-1.16) H 04/02/18 10:56 d/w cardiology courtney MARSH regarding bradycardia EKG viewed, my personal interpretation is - slow afib - Physical Exam Constitutional: no apparent distress, appears nourished, not in pain Cardiovascular: regular rate and rhythym, no murmur, rub, or gallop Respiratory: no respiratory distress, no rales or rhonchi, clear to auscultation Gastrointestinal: normoactive bowel sounds, soft, non-tender abdomen, no palpable masses Skin: no rashes or abrasions, no fluctuance, no induration Neurologic: AAOx3, sensation intact bilaterally Psychiatric: interacting appropriately, not anxious, not encephalopathic, thought process linear ICD10 Worksheet Patient Problems: Problems Problem Status Onset Upper GI bleed Acute CAD (coronary artery disease) Acute
[2018-04-05] MEDS: traZODone 100 MG TAB PO PRN (21:10)
[2018-04-05] MEDS: diphenhydrAMINE 25 MG CAP PO PRN (21:10)
[2018-04-06] MEDS: LEVOTHYROXINE 150 MCG TAB PO SCH (04:57)
[2018-04-06] MEDS: LEVOTHYROXINE 200 MCG TAB PO SCH (04:57)
[2018-04-06 05:28] LABS: PLATELET COUNT 127 10^3/uL (150-400)
--- NOTE | 2018-04-06 10:13 | SOAPPROG ---
SOAP Progress Note Assessment/Plan: Assessment: 72 y/o M s/p laparoscopic partial gastrectomy for tumor resection. Initial path showing benign lipoma. POD #2 New onset A-fib. EKG. Cards doing possible procedure today - currently NPO Post procedure clears and can advance to general diet. Only eat about 1/4 meal at a time Hopefully home soon Need to settle cards issues Wean O2 to off S: Doing well overall. Passing flatus. Some RUQ pain, well managed. No nausea. Hungry. O:Alert, sitting up in bed, pleasant and appears well Cardiac: irregularly irregular Chest: ctab, no increased wob Abdomen: soft, appropriately ttp, normoactive BS, incisions cdi Plan: 04/06/18 10:08 Objective: Vital Signs Temp Pulse Resp BP Pulse Ox 37.1 C 59 L 15 103/63 99 04/06/18 08:10 04/06/18 08:10 04/06/18 08:10 04/06/18 08:10 04/06/18 08:10 Laboratory Results 04/06/18 04:52 04/06/18 04:52 04/05/18 04/06/18 04/07/18 05:59 05:59 05:59 Intake Total 1550 5070 Output Total 1100 1600 Balance 450 3470 PT 16.1 SEC (12.0-15.0) H 04/02/18 10:56 INR 1.27 (0.83-1.16) H 04/02/18 10:56 ICD10 Worksheet Patient Problems: Problems Problem Status Onset Upper GI bleed Acute CAD (coronary artery disease) Acute
--- NOTE | 2018-04-06 11:24 | SOAPPROG ---
[facility] Progress Note Assessment/Plan: Assessment: 1. Syncope. He presented with syncope in the setting of a significant upper GI bleed. This was also noted in the setting of recurrent atrial fibrillation with profound bradycardia. Interestingly, the patient has no history of bradycardia. As an outpatient he was only on low-dose metoprolol. During this hospitalization he has continued to be monitored on telemetry without extreme pauses noted. Additionally he has been asymptomatic following fluid resuscitation and transfusion. The exact cause of his syncope is not clear- specifically, it is not clear if his syncope was related to hemodynamic compromise in the setting of his upper GI bleed or potentially bradycardia in the setting of his recurrent atrial fibrillation and bradycardia. Overall I think it is most likely that this was a hemodynamic event. 2. Paroxysmal atrial fibrillation. He has had episodes of atrial fibrillation in the past. He has spontaneously converted to sinus rhythm. His chads Vasc score is 3. In the past, he and I had multiple conversations regarding the utility of systemic anticoagulation however he has universally declined to start this medication providing multiple excuses. Obviously, at the present time, given his recent surgery and upper GI bleed he is not a current candidate to begin anticoagulation. Additionally, I would feel comfortable starting anticoagulation until we elucidate the etiology for his recent episode of syncope. 3. Coronary artery disease. In May of 2017 he underwent PCI and stenting of the RCA. This was performed electively. There has been no indication of recurrent ischemia during this hospitalization. 4. Hyperlipidemia. Currently on high-dose statin therapy. 5. History of a moderate ascending thoracic aortic aneurysm. Currently asymptomatic. Plan: 1. Avoid systemic anticoagulation in and AV ruddy agents in the near term. 2. I will defer to the surgical team regarding management of his diet and determination of time of discharge. 3. Following discharge I would like to see him back in the office. At that time , I will schedule him for an outpatient monitor specifically to further assess his heart rate and determine the need for possible permanent pacemaker implantation. 4. Once we have better identified the cause for his episode of syncope and determined that he is low risk for future events we can begin systemic anticoagulation at that time. 5. Depending on his symptoms once he is out of the hospital and depending on whether not he converts back to sinus rhythm, we may consider VANIA and cardioversion following reinstitution of anticoagulation. 04/06/18 11:18 Subjective: The patient was seen and examined. His chart was reviewed. I reviewed the consultation dictated by Dr. Ramsey Mcmahon. Currently, he is asymptomatic. Specifically, he denies palpitations, dizziness, dyspnea and chest discomfort. His diet is being advanced slowly. He is passing flatus. He has yet to have a bowel movement. On telemetry he has been in atrial fibrillation with periods of profound bradycardia. Objective: Vital Signs Temp Pulse Resp BP Pulse Ox 37.1 C 59 L 15 103/63 99 04/06/18 08:10 04/06/18 08:10 04/06/18 08:10 04/06/18 08:10 04/06/18 08:10 Laboratory Results 04/06/18 04:52 04/06/18 04:52 04/05/18 04/06/18 04/07/18 05:59 05:59 05:59 Intake Total 1550 5070 Output Total 1100 1600 Balance 450 3470 PT 16.1 SEC (12.0-15.0) H 04/02/18 10:56 INR 1.27 (0.83-1.16) H 04/02/18 10:56 ICD10 Worksheet Patient Problems: Problems Problem Status Onset Upper GI bleed Acute CAD (coronary artery disease) Acute
[2018-04-06] MEDS: ATORVASTATIN CALCIUM 40 MG TAB PO SCH (12:11)
[2018-04-06] MEDS: VITAMIN B COMPLEX 1 EA CAP/TAB PO SCH (12:11)
[2018-04-06] MEDS: CHOLECALCIFEROL VIT D3 1,000 UNITS TAB PO SCH (12:12)
[2018-04-06] MEDS: PANTOPRAZOLE SODIUM 40 MG TAB PO SCH (12:12)
[2018-04-06] MEDS: ALLOPURINOL 300 MG TAB PO SCH (12:12)
[2018-04-06] MEDS: PANTOPRAZOLE SODIUM 40 MG VIAL IVP SCH (12:12)
[2018-04-06] MEDS: MULTIVITAMINS 1 EACH TAB PO SCH (12:12)
--- NOTE | 2018-04-06 12:33 | GOP ---
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 POSTOPERATIVE DIAGNOSIS: 1. 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 2. Lipoma. PROCEDURE PERFORMED: FINDINGS: The patient was found to have a 4 cm mass in the anterior wall of the stomach which was ul cerated, but consistent with an intra neuro lipoma on frozen section. ESTIMATED BLOOD LOSS: Negligible. The patient was taken to the recovery room in good condition. There were no complications. __ DESCRIPTION OF PROCEDURE: The patient was taken to the operating room where he received satisfactory general endotracheal anesthesia. He was placed in supine position, prepped and draped in the usual sterile fashion. A periumbilical incision was made. A Veress needle inserted. Pneumoperitoneum was established. Trocar was introduced. Laparoscope introduced. Adequate visualization was obtained. Two other trocars were placed in the left upper quadrant under direct vision. The stomach was mobil ized. A portion of the greater curvature vessels were divided with care to avoid injury to the gastr ic wall. The tumor could be palpated, and identified visually. A 2-0 silk suture was then placed in the tumor and then tied to use for a handle. The tumor was elevated up and using an Endo-LATOYA staple r, the tumor was mobilized and excised using the stapler. It was then placed in a specimen bag and e xtracted through the upper port site. Hemostasis was assured. The wound was irrigated. It was test ed under water with air insufflation and appeared to be air tight. The specimen was sent to Patholog y. It did contain the ulcerated mass. The trocars were removed under direct vision. Trocar sites w ere closed with 0 Vicryl in fashion and 4-0 Monocryl subcuticular stitches to the skin. A ll layers infiltrated with Marcaine. /[id number]/MODL
--- NOTE | 2018-04-06 16:19 | HOSPPROG ---
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 Waddell - f/u cardiology outpatient for Holter -defer anti-coag initiation to outpatient * h/o thyroid cancer -TSH suppressed on high dose levothyroxine * HTN -holding BP meds * Dilated ascending aorta -outpatient follow-up * Renal cysts -no further w/u needed * Bladder thickening -outpatient cystoscopy Subjective: feels great, hoping to go home tomorrow Objective: Vital Signs Temp Pulse Resp BP Pulse Ox 36.8 C 68 16 112/59 L 93 04/06/18 15:57 04/06/18 15:57 04/06/18 15:57 04/06/18 15:57 04/06/18 15:57 Laboratory Results 04/06/18 04:52 04/06/18 04:52 04/05/18 04/06/18 04/07/18 05:59 05:59 05:59 Intake Total 1550 5070 Output Total 1100 1600 Balance 450 3470 PT 16.1 SEC (12.0-15.0) H 04/02/18 10:56 INR 1.27 (0.83-1.16) H 04/02/18 10:56 - Physical Exam Constitutional: no apparent distress, appears nourished, not in pain Cardiovascular: regular rate and rhythym, no murmur, rub, or gallop Respiratory: no respiratory distress, no rales or rhonchi, clear to auscultation Gastrointestinal: normoactive bowel sounds, soft, non-tender abdomen, no palpable masses Skin: no rashes or abrasions, no fluctuance, no induration Neurologic: AAOx3, sensation intact bilaterally Psychiatric: interacting appropriately, not anxious, not encephalopathic, thought process linear ICD10 Worksheet Patient Problems: Problems Problem Status Onset Upper GI bleed Acute CAD (coronary artery disease) Acute
[2018-04-06] MEDS: oxyCODONE IR 5 MG TAB PO PRN (16:24)
--- NOTE | 2018-04-06 17:29 | ASMTCMCOM ---
CM Note CM Note Notes: Pt admitted for resection of benign lipoma, then had bradycardia and eval for possible pacer placement. Cardiology keeping pt one more night for tele obs. If no further issue, will dc independently with support from Shabnam. Diarrhea resolved. Likely discharge tomorrow. D/C Plan: Independent Date Signed: 04/06/2018 05:29 PM Electronically Signed By:Debra Pickering
[2018-04-06] MEDS: diphenhydrAMINE 25 MG CAP PO PRN (21:08)
[2018-04-06] MEDS: traZODone 100 MG TAB PO PRN (21:08)
[2018-04-07] MEDS: LEVOTHYROXINE 200 MCG TAB PO SCH (05:24)
[2018-04-07] MEDS: LEVOTHYROXINE 150 MCG TAB PO SCH (05:24)
[2018-04-07] MEDS: traMADol 50 MG TAB PO PRN (05:37)
[2018-04-07 07:52] VITALS: BP 137/77
[2018-04-07] MEDS: oxyCODONE IR 5 MG TAB PO PRN (08:14)
[2018-04-07] MEDS: PANTOPRAZOLE SODIUM 40 MG TAB PO SCH (08:15)
[2018-04-07] MEDS: VITAMIN B COMPLEX 1 EA CAP/TAB PO SCH (08:15)
[2018-04-07] MEDS: MULTIVITAMINS 1 EACH TAB PO SCH (08:15)
[2018-04-07] MEDS: CHOLECALCIFEROL VIT D3 1,000 UNITS TAB PO SCH (08:16)
[2018-04-07] MEDS: ATORVASTATIN CALCIUM 40 MG TAB PO SCH (08:16)
[2018-04-07] MEDS: ALLOPURINOL 300 MG TAB PO SCH (08:16)
[2018-04-07] MEDS ORDERED: CLOPIDOGREL BISULFATE 75 MG TAB PO SCH (09:00)
--- NOTE | 2018-04-07 10:43 | HOSPPROG ---
Hospitalist Progress Note Assessment/Plan: UGIB due to gastric lipoma s/p resection -continue PPI -final pathology pending -advance diet today ABL anemia s/p transfusion -H/H stable CAD/RCA stent 05/23/17 -restart Plavix today Afib -3 second pauses noted on tele - may need PCM -holding metoprolol -per Dr. Waddell - f/u cardiology outpatient for Holter -defer anti-coag initiation to outpatient h/o thyroid cancer -TSH suppressed on high dose levothyroxine HTN -holding BP meds Dilated ascending aorta -outpatient follow-up Renal cysts -no further w/u needed Bladder thickening -outpatient cystoscopy home today > 30 minutes on dc Subjective: case d/w dr waddell. anxious for dc. tele- bradycardia Objective: Vital Signs Temp Pulse Resp BP Pulse Ox 37.1 C 65 16 137/77 H 95 04/07/18 07:51 04/07/18 10:36 04/07/18 10:36 04/07/18 07:51 04/07/18 10:36 Laboratory Results 04/06/18 04:52 04/06/18 04:52 04/06/18 04/07/18 04/08/18 05:59 05:59 05:59 Intake Total 5070 500 Output Total 1600 3200 400 Balance 3470 -2700 -400 PT 16.1 SEC (12.0-15.0) H 04/02/18 10:56 INR 1.27 (0.83-1.16) H 04/02/18 10:56 - Physical Exam Constitutional: no apparent distress, appears nourished Eyes: PERRL, anicteric sclera Ears, Nose, Mouth, Throat: moist mucous membranes, hearing normal Cardiovascular: regular rate and rhythym, no murmur, rub, or gallop Respiratory: no respiratory distress, no rales or rhonchi Gastrointestinal: normoactive bowel sounds, soft, non-tender abdomen Genitourinary: no bladder fullness, No kimbrough in urethra Skin: warm, normal color Musculoskeletal: full muscle strength Neurologic: AAOx3 ICD10 Worksheet Patient Problems: Problems Problem Status Onset Upper GI bleed Acute CAD (coronary artery disease) Acute
--- NOTE | 2018-04-07 10:53 | SOAPPROG ---
NICOLE Progress Note Assessment/Plan: Assessment: 1. Syncope. He presented with syncope in the setting of a significant upper GI bleed. This was also noted in the setting of recurrent atrial fibrillation with profound bradycardia. Interestingly, the patient has no history of bradycardia. As an outpatient he was only on low-dose metoprolol. During this hospitalization he has continued to be monitored on telemetry without extreme pauses noted. Additionally he has been asymptomatic following fluid resuscitation and transfusion. The exact cause of his syncope is not clear- specifically, it is not clear if his syncope was related to hemodynamic compromise in the setting of his upper GI bleed or potentially bradycardia in the setting of his recurrent atrial fibrillation and bradycardia. Overall I think it is most likely that this was a hemodynamic event. 2. Paroxysmal atrial fibrillation. He has had episodes of atrial fibrillation in the past. He has spontaneously converted to sinus rhythm. His chads Vasc score is 3. In the past, he and I had multiple conversations regarding the utility of systemic anticoagulation however he has universally declined to start this medication providing multiple excuses. Obviously, at the present time, given his recent surgery and upper GI bleed he is not a current candidate to begin anticoagulation. Additionally, I would feel comfortable starting anticoagulation until we elucidate the etiology for his recent episode of syncope. 3. Coronary artery disease. In May of 2017 he underwent PCI and stenting of the RCA. This was performed electively. There has been no indication of recurrent ischemia during this hospitalization. 4. Hyperlipidemia. Currently on high-dose statin therapy. 5. History of a moderate ascending thoracic aortic aneurysm. Currently asymptomatic. 04/07/2018: He appears to be doing well. He has not had any further episodes syncope or presyncope. While he remains bradycardic and in atrial fibrillation this, at this point, appears to be asymptomatic. Plan: 1. At this point I think he be discharged from hospital. 2. I did contact our office. We will reach out to him and place a 48 hr Holter monitor. 3. I will see him back in the office at the end of the week to review that monitor with him. 4. A single anti-platelet agent can be reinstituted depending on general surgery and the risk for a recurrent bleeding. 5. For the time being given his recently bulimia associated syncope of regular insulin off on reinstituting anticoagulation until we can sort out and whether not he is at risk for recurrent syncopal events. 01/20/19 10:51 Subjective: He is doing well today. He has been eating for the last 24 hr. He notes no abdominal discomfort. He denies dizziness and lightheadedness. He has been monitored on telemetry and remains in atrial fibrillation with episodes of asymptomatic nocturnal bradycardia. Objective: Vital Signs Temp Pulse Resp BP Pulse Ox 37.1 C 65 16 137/77 H 95 04/07/18 07:51 04/07/18 10:36 04/07/18 10:36 04/07/18 07:51 04/07/18 10:36 Laboratory Results 04/06/18 04:52 04/06/18 04:52 04/06/18 04/07/18 04/08/18 05:59 05:59 05:59 Intake Total 5070 500 Output Total 1600 3200 400 Balance 3470 -2700 -400 PT 16.1 SEC (12.0-15.0) H 04/02/18 10:56 INR 1.27 (0.83-1.16) H 04/02/18 10:56 Physical Exam - Physical Exam General Appearance: WD/WN, no apparent distress Respiratory: lungs clear Cardiac/Chest: irregularly irregular ICD10 Worksheet Patient Problems: Problems Problem Status Onset Upper GI bleed Acute CAD (coronary artery disease) Acute
--- NOTE | 2018-04-07 11:29 | SOAPPROG ---
NICOLE Progress Note Assessment/Plan: Assessment: 72 y/o M s/p laparoscopic partial gastrectomy for tumor resection. Initial path showing benign lipoma. POD #3 Dr. Waddell seeing due to cardiac issues. Will continue outpatient work up Regular diet - eat in moderation From surgical perspective can dc home S: Doing well overall. Passing flatus. Some RUQ pain, well managed. Tolerating diet. O:Alert, sitting up in bed, pleasant and appears well Cardiac: irregularly irregular Chest: ctab, no increased wob Abdomen: soft, appropriately ttp, normoactive BS, incisions cdi Plan: 04/06/18 10:08 04/07/18 11:27 Objective: Vital Signs Temp Pulse Resp BP Pulse Ox 37.1 C 65 16 137/77 H 95 04/07/18 07:51 04/07/18 10:36 04/07/18 10:36 04/07/18 07:51 04/07/18 10:36 Laboratory Results 04/06/18 04:52 04/06/18 04:52 04/06/18 04/07/18 04/08/18 05:59 05:59 05:59 Intake Total 5070 500 Output Total 1600 3200 400 Balance 3470 -2700 -400 PT 16.1 SEC (12.0-15.0) H 04/02/18 10:56 INR 1.27 (0.83-1.16) H 04/02/18 10:56 ICD10 Worksheet Patient Problems: Problems Problem Status Onset Upper GI bleed Acute CAD (coronary artery disease) Acute
--- NOTE | 2018-04-07 11:51 | ASDISCHSUM ---
Discharge Information Plan Status:Home with No Needs Medically Cleared to Leave:04/06/2018 Discharge Date:04/06/2018 CM D/C Disposition:Home, Routine, Self-Care ADT D/C Disposition: Projected Discharge Date:04/06/2018 Transportation at D/C:Family Discharge Delay Reason: Follow-Up Date:04/06/2018 Discharge Slot: Final Diagnosis:Upper GI bleed, syncope, bradycardia Placement Information Patient Contact Information Contact Name:ESA Relationship: Address:[address] Work Phone: City:[facility] Phone: State/Zip Code:[place] [address] Email: Financial Information Financial Class:Medicare Primary Plan Desc:MEDICARE INPATIENT Primary Plan Number:[id number] Secondary Plan Desc:[employer] SUPPLEMENT Secondary Plan Number:[id number] Assessment Information LACE LACE Length of stay for Answers: 4-6 days current admission Acuity / Level of Answers: Yes Care: Did the patient have an inpatient admission? Comorbidities - select Answers: Any tumor (including all that apply lymphoma or leukemia) Chronic pulmonary disease Coronary Artery Disease Other Notes: HTN, GI bleed/lypoma # of Emergency department Answers: 1-2 visits in the last 6 months Score: 15 Date Signed: 04/07/2018 11:50 AM Electronically Signed By:Debra Pickering [facility] CM Progress Note CM Note CM Note Notes: Pt is a 72 yo M. here for gastric surgery. Pt lives with in [place]. Pt is undergoing surgery with Steve tomorrow. CM will follow to see if needs arise. Plan: TBD after surgery. Date Signed: 04/03/2018 02:36 PM Electronically Signed By:ANDREA Ingram [facility] CM Progress Note CM Note CM Note Notes: Pt admitted for resection of benign lipoma, then had bradycardia and eval for possible pacer placement. Cardiology keeping pt one more night for tele obs. If no further issue, will dc independently with support from Shabnam. Diarrhea resolved. Likely discharge tomorrow. D/C Plan: Independent Date Signed: 04/06/2018 05:29 PM Electronically Signed By:Debra Pickering Case Management Discharge Plan Note Case Management Discharge Discharge Order Complete? Answers: Yes Patient to Obtain Answers: Independently Medications Transportation Arranged Answers: Family/Friends Transport will Pick (Date 04/07/2018 12:00 AM & Time) Family Notified Answers: Yes Notes: by pt Discharge Comments Notes: Spoke with pt's RN and with hospitalist. Therapies have cleared pt to discharge home independently. No CM needs noted at this time. CM available should needs change. Date Signed: 04/07/2018 11:48 AM Electronically Signed By:Debra Pickering Intervention Information Intervention Type:*IM-Signed Date of Service:04/05/2018 02:59 PM Patient Type:Inpatient Staff Member:Rosa Lopez Hours: Discipline: Severity: Comment:
--- NOTE | 2018-04-07 13:09 | GDS ---
DISCHARGE DIAGNOSES: 1. Acute blood loss anemia. 2. Upper gastrointestinal bleed, secondary to gastric lymphoma, status post resection. 3. Syncope. 4. Melena. 5. Coronary artery disease with drug-eluting stent placed in May 2017. 6. Hypertension. 7. Thoracic aneurysm. 8. Remote history of thyroid cancer on chronic levothyroxine with chronically suppressed TSH. Please see admission history and physical by Dr. Isabel Waters. The patient presented with syncope a nd melena. He underwent an upper scope on the day of admission showing gastric tumor in the greater curvature of the gastric body just was suspected. This is felt to be a lipoma on the basis of yesenia gutierrez. The pathology remains pending. The patient received 2 units of blood on a unit of plasma. He was noted to be in atrial fibrillation with occasional pauses. His beta-lisa was held for the entirety of his hospitalization. He was hemodynamically stable without symptoms and ultimately is di scharged off his beta lisa with outpatient followup for a monitor. He was seen by his own cardiol ogist, Dr. Waddell while here. The patient also had his aspirin and Plavix held while here. His Plavix is resumed today with plans to restart aspirin after Cardiology followup. I have communicated this with his primary corporate safety director . There are no new prescriptions. /[id number]/MODL
--- NOTE | 2018-04-08 05:04 | CPEKG ---
Test Reason : OPEN Blood Pressure : / mmHG Vent. Rate : 046 BPM Atrial Rate : 000 BPM P-R Int : 212 ms QRS Dur : 109 ms QT Int : 466 ms P-R-T Axes : 000 062 088 degrees QTc Int : 408 ms Atrial fibrillation Ventricular premature complex Low voltage, extremity leads Nonspecific T abnormalities, lateral leads Confirmed by Kirk Griffin ([id number]) on 04/08/2018 5:04:28 AM Referred By: Confirmed By:Kirk Griffin
--- NOTE | 2018-04-08 05:11 | CPEKG ---
Test Reason : OPEN Blood Pressure : / mmHG Vent. Rate : 063 BPM Atrial Rate : 000 BPM P-R Int : 152 ms QRS Dur : 110 ms QT Int : 411 ms P-R-T Axes : 255 018 067 degrees QTc Int : 421 ms Atrial fibrillation Low voltage, extremity leads Borderline ST depression, lateral leads Confirmed by Kirk Griffin ([id number]) on 04/08/2018 5:10:59 AM Referred By: Confirmed By:Kirk Griffin
--- NOTE | 2018-04-10 13:37 | GPROG ---
The patient's cardiovascular status is normal, stable. The patient's pulmonary status is normal, sta ble. Pain control is satisfactory at this time with p.r.n. treatment ordered. Nausea and vomiting c ontrol are satisfactory at this time with p.r.n. treatment ordered. Mental status is sleepy, easily arousable. Complications related to anesthesia are none at this time. /[id number]/MODL
== END 2018-04-07 12:53 | disposition home or self-care (01) | DRG 394 ==
LOC: OBSVTOIN 11:47 → F1N 14:09
PROVIDERS: ADMIT Hospitalist; ATTEND Hospitalist
PROC: 0DB58ZX Excision of Esophagus, Via Natural or Artificial Opening Endoscopic, Diagnostic (ICD-10-PCS; 2018-04-02)
PROC: 30233N1 Transfusion of Nonautologous Red Blood Cells into Peripheral Vein, Percutaneous Approach (ICD-10-PCS; 2018-04-04)
PROC: 30233L1 Transfusion of Nonautologous Fresh Plasma into Peripheral Vein, Percutaneous Approach (ICD-10-PCS; 2018-04-04)
PROC: 0DB64ZX Excision of Stomach, Percutaneous Endoscopic Approach, Diagnostic (ICD-10-PCS; principal; 2018-04-04 11:30)
DX: D17.5 Benign lipomatous neoplasm of intra-abdominal organs (principal); D62 Acute posthemorrhagic anemia; K92.1 Melena; E86.9 Volume depletion, unspecified; I25.10 Atherosclerotic heart disease of native coronary artery without angina pectoris; I10 Essential (primary) hypertension; I71.2 Thoracic aortic aneurysm, without rupture; I48.0 Paroxysmal atrial fibrillation; M10.9 Gout, unspecified; Z85.850 Personal history of malignant neoplasm of thyroid; Z96.642 Presence of left artificial hip joint; Z95.5 Presence of coronary angioplasty implant and graft; Z96.652 Presence of left artificial knee joint; Z87.891 Personal history of nicotine dependence
CPT/HCPCS: 82435-PO; 82565-PO; 82947-PO; 84132-PO; 84295-PO; 84481-90; 84484-ER; 84520-PO; 85014-ER; 96374; 97161-GP; 97165-GO; J0330; J0694; J1100; J1170; J1885; J2250; J2370; J2405; J2704; J3010; P9016; P9017; Q9967

== ENCOUNTER → 2018-04-09 | Outpatient (CLI) | payer OTHER, MEDICARE | LOC: BHFA 15:30 | PROVIDERS: ATTEND Internal Medicine Cardiovascular Disease | DX: R55 Syncope and collapse (principal) ==

== ENCOUNTER → 2018-04-15 | Outpatient (CLI) | payer OTHER, MEDICARE | LOC: BHLMT 11:30 | PROVIDERS: ATTEND Internal Medicine Interventional Cardiology | DX: R55 Syncope and collapse (principal) | CPT/HCPCS: 93225-PO; 93226-PO ==

== ENCOUNTER → 2018-04-17 | Outpatient (CLI) | payer OTHER, MEDICARE ==
[~2018-04-17] MED LIST changes: +IOHEXOL 350mgI/ML (OMNIPAQUE) 150 ML BTL IV ONE; -IOPAMIDOL (ISOVUE-300) 100 ML BTL IV ONE
== END ==
LOC: FIMAGING 08:08
PROVIDERS: ATTEND Internal Medicine Cardiovascular Disease
DX: I71.2 Thoracic aortic aneurysm, without rupture (principal); K55.1 Chronic vascular disorders of intestine; I28.8 Other diseases of pulmonary vessels; I25.10 Atherosclerotic heart disease of native coronary artery without angina pectoris; M48.061 Spinal stenosis, lumbar region without neurogenic claudication
CPT/HCPCS: 71275; 74175; Q9967